=== PATIENT | male | born 1990 | race Caucasian/White ===

== ENCOUNTER → 2023-01-07 13:26 | Outpatient (BNVA) | payer OTHER, SELFPAY | PROVIDERS: Visit Provider Physician Assistant | DX: S01.111A Laceration without foreign body of right eyelid and periocular area, initial encounter (principal); W26.9XXA Contact with unspecified sharp object(s), initial encounter | CPT/HCPCS: 12011; 99203 ==

== ENCOUNTER → 2023-01-13 08:58 | Outpatient (BNVA) | payer OTHER, SELFPAY | PROVIDERS: Visit Provider Internal Medicine | DX: Z48.02 Encounter for removal of sutures (principal); S01.111A Laceration without foreign body of right eyelid and periocular area, initial encounter; W26.9XXA Contact with unspecified sharp object(s), initial encounter | CPT/HCPCS: 99212; 99213 ==

== ENCOUNTER 2024-10-24 08:37 | Emergency (ER) | payer OTHER, BC, SELFPAY ==
--- NOTE | ~2024-10-24 | XR_ITS ---
EXAMINATION: XR HAND 3 OR MORE VIEWS RIGHT HISTORY: crush injury, avulsion COMPARISON: There are no prior studies available for comparison. FINDINGS: Three views of the right hand are submitted. Osseous mineralization is normal. There is a comminuted nondisplaced fracture of the distal tuft of the index finger. There is an additional fracture involving the distal tuft of the middle finger. No additional fracture is seen. There is no dislocation. The joint spaces are preserved. There is marked soft tissue swelling of the middle finger. XR/XR hand RT min 3V IMPRESSION: Comminuted fracture of the distal tuft of the index finger. No fracture involving the distal tuft of the middle finger. Electronically signed by: Andrade Flynn MD 10/24/2024 09:43 AM EDT
[2024-10-24 08:43] VITALS: BP 120/71; PULSE 75; RESP 16; TEMP 36.1; O2SAT 97; BMI 24.3
[2024-10-24] MEDS: HYDROmorphone HCl 1 MG/ML SYRINGE IVPUSH (08:59)
[2024-10-24] MEDS: ondansetron HCL 4 MG/2 ML VIAL IVPUSH (08:59)
[2024-10-24] MEDS: Lidocaine HCl 1 % MPF 5 ML VIAL 10 ML INFILTRATI (09:00)
[2024-10-24] MEDS: Diphth,Pertus(ACell),Tet Adult 0.5 ML SYRINGE IM (09:00)
--- NOTE | 2024-10-24 09:05 | ED.WOUNDLAC ---
HPI - Wound/Laceration General Chief Complaint: Wound/Laceration Stated Complaint: R Hand Finger Injury ?Amputation Time Seen by Provider: 10/24/24 08:54 Source: patient and family () Mode of arrival: ambulatory Limitations: no limitations History of Present Illness ED Provider: JULIETH MAYORGA PA-C HPI narrative: 34 year old male with no significant pmhx presents to the ED today for evaluation of crush injury to right hand sustained at work [employer]. Reports crushing his right hand while attempting to attach a trailer to a truck hitch. Reports immediate pain/ bleeding. Not on AC. He is right hand dominant. Unsure of last tetanus. Reports pain to right 2/3/4 digits with open wound to 3rd digit. Admits to difficulty flexing right 3rd digit due to pain/swelling. no hx DM. Related Data Previous Rx's ?Medication ?Instructions ?Recorded tramadol 50 mg tablet 50 mg PO Q8H PRN pain (scale score 10/24/24 7-10) #9 tabs Allergies Allergy/AdvReac Type Severity Reaction Status Date / Time No Known Allergies Allergy Verified 10/24/24 08:48 Review of Systems Review of Systems: Yes all other systems are reviewed and are negative PMFSH Past Medical History Attestation statement: The following information was validated with the patient. Source: old records reviewed and nursing notes reviewed Social History Social History Advance Directives: No Advance Directives Information Provided: Yes Physical Exam Vital Signs: Vital Signs: Last Vital Signs Temp 97.8 F 10/24/24 12:29 Pulse 82 10/24/24 12:29 Resp 20 10/24/24 12:29 BP 108/72 10/24/24 12:29 Pulse Ox 97 10/24/24 12:29 O2 Del Method Room Air 10/24/24 12:29 BMI result Body Mass Index 24.3 vital signs stable General: anxious appearing, in no acute distress. Skin: Warm, dry, intact. No rashes or lesions. Head: Normocephalic, atraumatic. EENT: Hearing is intact b/l. Conjunctiva clear. PERRLA. EOM intact. Moist mucous membranes.? Cardiac: Chest wall symmetric. RRR Lungs: Normal respiratory effort without accessory muscle use. CTA bilaterally. Ext: +see photos below. semi circumferential laceration noted to distal right 3rd digit. actively bleeding. nail bed intact. decreased ROM to 3rd digit w/ flexion. sensation intact. decreased cap refill. Neuro: AOx3. Normal speech. Ambulating with steady gait. Psych: Appropriate mood and affect. Responds appropriately to questions. Course Course Course Narrative: CBC without leukocytosis or left shift. No anemia. H&H stable. Chemistry without acute electrolyte abnormality requiring intervention. No KRISTIN. Random glucose 147. X-ray of the right hand shows a comminuted nondisplaced fracture of the distal tuft of the index finger with an additional fracture involving the distal tuft of the middle finger. No other fractures noted. Marked soft tissue swelling of the 3rd digit consistent with exam findings. > I reached out to on-call ortho TSERING snider - recommending cleansing laceration with repair, abx, and outpatient ortho followup > tdap updated > treated with dilaudid, tylenol, and toradol witih good effect > during laceration repair, patient began to have vagal response. POC checked - 110. HOB lowered. He was given ice pack, 1L IVF, sandwich, and juice with improvement in symptoms. he did not syncopize. > laceration cleansed thoroughly with saline and iodine. No visible bone. I repaired laceration with a total of 12 sutures. approximated margins to the best of my ability. splinted both 2/3 digits. limited ROM to 3rd digit. concern for ligament/tendon injury. referral to dr. gutierrez (ortho- hand surgery) provided. advised prompt follow up. given open fracture, will start patient on Augmentin. advised Tylenol/ Motrin. tramadol sent for break through pain. referral to work connection provided. Patient has remained stable throughout ED visit today. Discussed worrisome signs and symptoms and when to return to the ED. All questions answered at this time. Patient is agreeable with disposition and stable for discharge. Medications Administered Discontinued Medications Generic Name Dose Route Start Last Admin Trade Name Freq PRN Reason Stop Dose Admin Diphtheria/Tetanus/Acell Pertussis 0.5 ml 10/24/24 08:48 10/24/24 09:00 Diphth,Pertus(Acell),Tet Adult 0.5 Ml Syringe IM 10/24/24 08:49 0.5 ml .ONCE ONE Administration Hydromorphone HCl 1 mg 10/24/24 08:48 10/24/24 08:59 Hydromorphone Hcl 1 Mg/Ml Syringe IVPUSH 10/24/24 08:49 1 mg ONCE ONE Administration Protocol Hydromorphone HCl 0.5 mg 10/24/24 10:39 10/24/24 11:00 Hydromorphone Hcl 0.5 Mg/0.5 Ml Syringe IVPUSH 10/24/24 10:40 Not Given ONCE ONE Protocol Sodium Chloride 1,000 mls @ 999 mls/hr 10/24/24 10:45 10/24/24 11:48 Ns IV 10/24/24 11:45 Infused .Q1H1M CHARY Infusion Acetaminophen 1,000 mg in 100 mls @ 400 mls/hr 10/24/24 10:46 10/24/24 10:49 Ofirmev IV 10/24/24 11:00 400 mls/hr ONCE ONE Administration Ketorolac Tromethamine 30 mg 10/24/24 10:45 10/24/24 10:47 Ketorolac Tromethamine 30 Mg/Ml Vial IVPUSH 10/24/24 10:46 30 mg ONCE ONE Administration Lidocaine HCl 10 ml 10/24/24 08:53 10/24/24 09:00 Lidocaine Hcl 1 % Mpf 5 Ml Vial INFILTRATI 10/24/24 08:54 10 ml ONCE ONE Administration Ondansetron HCl 4 mg 10/24/24 08:48 10/24/24 08:59 Ondansetron Hcl 4 Mg/2 Ml Vial IVPUSH 10/24/24 08:49 4 mg ONCE ONE Administration Medical Decision Making Medical Decision Making [facility] Narrative: 34 year old male with no significant pmhx presents to the ED today for evaluation of crush injury to right hand sustained at work [employer]. vital signs stable. afebrile. he is anxious appearing however in NAD. see physical exam section for details. Differential diagnosis includes laceration, open fracture, fracture, ligament/tendon injury, nail bed injury, nail avulsion Plan for screening labs, xrs, laceration repair, tdap booster, pain control and re-evaluation. Differential Diagnosis Differential Diagnoses: The differential diagnosis associated with the presentation includes as above. Admission/Observation not indicated. Consult Healthcare Provider Management of the patient was discussed with: Ferryboat Captain florence tam Lab Data MDM Lab Attestation statement: I reviewed the patient's lab results. as above. 10/24/24 09:18 10/24/24 09:18 Labs: Lab Results 10/24/24 10/24/24 Range/Units 09:18 10:43 WBC 6.1 (4.8-10.8) X10*3/uL RBC 4.53 L (4.60-5.80) X10*6/uL Hgb 14.1 (14.0-18.0) g/dl Hct 39.8 L (42.0-52.0) % MCV 87.9 (80.0-98.0) fL MCH 31.1 (27.0-33.0) pg MCHC 35.4 (31.0-36.0) g/dl RDW 11.9 (11.0-16.0) % Plt Count 212 (160-400) X10*3/uL MPV 9.0 L (9.4-12.4) fL Immature Gran % (Auto) 0.3 (0.0-0.4) % Neut % (Auto) 58.6 (45-73) % Lymph % (Auto) 31.9 (20-40) % [place] % (Auto) 6.1 (2-11) % Eos % (Auto) 2.3 (0-4) % Baso % (Auto) 0.8 (0-2) % Lymph # (Auto) 1.9 (1.2-4.9) X10*3/uL [place] # (Auto) 0.4 (0.1-1.2) X10*3/uL Eos # (Auto) 0.1 (0.0-0.4) X10*3/uL Baso # (Auto) 0.1 (0.0-0.2) X10*3/uL Abs Immat Gran (auto) 0.02 (0.00-0.03) X10*3/uL Absolute Neuts (auto) 3.5 (2.0-8.3) x10*3/uL Absolute Nucleated RBC 0.000 (0.0-0.012) X10*3/uL Nucleated RBC % (auto) 0.0 (0.0-0.2) /100WBC Sodium 138 (135-145) mmol/L Potassium 3.9 (3.3-5.1) mmol/L Chloride 106 (96-108) mmol/L Carbon Dioxide 21 L (22-29) mmol/L Anion Gap 15 (12-20) BUN 14 (9-16) mg/dL Creatinine 0.79 (0.5-1.4) mg/dL Estim Creat Clear Calc 125.0 Estimated GFR > 60 POC Glucose 110 (60-115) mg/dL Random Glucose 147 H (60-115) mg/dL Calcium 8.8 (8.4-10.2) mg/dL Independent Interpretation I performed an independent interpretation of an: Plain X-Ray Interpretation: xr right hand showing distal tuft fractures to both right 2nd and 3rd digits Radiology Impression Discussion of test interpretation with radiology: I have reviewed the radiologist's reading. Radiologist Impression: Procedure(s): XR hand RT min 3V Accession Number(s): [id number] cc: Marlene Fonseca DO; Emily Archibald JUNIOR NET DEVELOPER~ EXAMINATION: XR HAND 3 OR MORE VIEWS RIGHT HISTORY: crush injury, avulsion COMPARISON: There are no prior studies available for comparison. FINDINGS: Three views of the right hand are submitted. Osseous mineralization is normal. There is a comminuted nondisplaced fracture of the distal tuft of the index finger. There is an additional fracture involving the distal tuft of the middle finger. No additional fracture is seen. There is no dislocation. The joint spaces are preserved. There is marked soft tissue swelling of the middle finger. XR/XR hand RT min 3V IMPRESSION: Comminuted fracture of the distal tuft of the index finger. No fracture involving the distal tuft of the middle finger. Electronically signed by: Andrade Flynn MD 10/24/2024 09:43 AM EDT Independent Historian Clinical information obtained from an independent historian. History obtained from or confirmed by: Spouse () External Record Review External record reviewed: Inpatient record Prescription Management I considered prescription management with: Pain Medication and Antibiotic (augmentin) Social Determinants Patient?s care significantly limited by Social Determinants of Health including: Other Social Determinant of Health Procedures Laceration Laceration 1: Site: hand Side (If applicable): right Size (cm): 5 Description: linear Depth: simple, single layer Local Anesthetic: lidocaine 1% Amount of anesthesia used (mL): 10 Pre-repair: wound explored Skin layer closed with: nylon Size (cm): 3-0 Number of sutures: 12 Technique: simple, interrupted Nerve Block Nerve Block 1: Time out performed: Yes Local Anesthetic: lidocaine 1% Amount of anesthesia used (mL): 10 Side: right Nerve Blocks: digital Procedure Successful: Yes Patient Tolerated Procedure: well Complications: none Critical Care Time Critical Care Time Critical Care Time: No Discharge Plan Discharge Clinical Impression: Open comminuted fracture of distal phalanx of finger Patient Disposition: Home, Self-Care Instructions: Finger Fracture (ED) Additional Instructions: You were seen in the ED today following a crush injury to your right hand. You have a fracture to the tip of both your right index and middle fingers. You also have a large laceration to your middle finger that has been repaired with 12 sutures. Please wear your finger splint /. You may change the tape as needed. Please check the laceration daily. If you develop redness or swelling at the site of your laceration or note any discharge/ fluid coming from the laceration, please come back to the ER for a wound check. Please keep the area surrounding the laceration clean and dry. Do not get the area wet for 24 hours. After 24 hours, you may clean the area with a nonscented soap and pat to dry. Your tetanus vaccination was also updated and will be valid for 5-10 years. For pain: I recommend you take 600mg ibuprofen every 6 hours or tylenol 650mg every 6 hours as needed for pain. If needed, you can alternate these medications so that you take one medication every 3 hours. For example, at noon take ibuprofen, then at 3pm take tylenol, then at 6pm take ibuprofen. I am sending tramadol to your pharmacy for you to take as needed for break through pain. Rest and ice the finger as this can help with swelling and pain. To prevent infection: Augmentin is an antibiotic that has been sent to your pharmacy. Take this as prescribed for 7 days. Do not skin Please follow up with your primary care physician in 7-10 days for suture removal. You may also return to the ER or another urgent care facility for this service. Return to the Emergency Department if you experience discharge from your laceration, redness around your laceration, warmth around your laceration, fever, vomiting, numbness, tingling, or any other concerning symptoms. In the case of an emergency call 911. Make sure to wear the splint until you follow up with [facility] Orthopedic Team. You have been provided with their contact information. Call them to follow up, they will not call you. I have also provided you with the contact information for the work connection as this was a work related injury. Call them to follow up. Return with new or worsening symptoms. In the case of an emergency call 911. Prescriptions: New tramadol 50 mg tablet 50 mg PO Q8H PRN (Reason: pain (scale score 7-10)) Qty: 9 0RF Referrals: [facility] Orthopedic Surgeons [Provider Group] - 2 days (comminuted nondisplaced fracture of the distal tuft of the index finger. There is an additional fracture involving the distal tuft of the middle finger.) [facility] [Outside] - 3 days (finger fracture work injury) Emily Archibald APRN [Primary Care Provider] - Stand Alone Forms: Work/School Release Interventions: ED Discharge Assessment Last Done: 10/24/24 12:29 Discharge Date/Time: 10/24/24 12:29 Print Language: Bengali
[2024-10-24 09:24] LABS: MANUAL DIFF FLAG NO
[2024-10-24 09:27] LABS: Basophils Absolute Auto 0.1 X10*3/uL (0.0-0.2); Basophils Percent Auto 0.8 % (0-2); Eosinophils Absolute Auto 0.1 X10*3/uL (0.0-0.4); Eosinophils Percent Auto 2.3 % (0-4); Hematocrit 39.8 % (42.0-52.0); Hemoglobin 14.1 g/dl (14.0-18.0); Imm Gran Abs Auto 0.02 X10*3/uL (0.00-0.03); Imm Gran Pct Auto 0.3 % (0.0-0.4); Lymphocytes Absolute Auto 1.9 X10*3/uL (1.2-4.9); Lymphocytes Percent Auto 31.9 % (20-40); Mean Corpuscular HGB Conc 35.4 g/dl (31.0-36.0); Mean Corpuscular Hemoglobin 31.1 pg (27.0-33.0); Mean Corpuscular Volume 87.9 fL (80.0-98.0); Monocytes Absolute Auto 0.4 X10*3/uL (0.1-1.2); Monocytes Percent Auto 6.1 % (2-11); Neutrophils Absolute Auto 3.5 x10*3/uL (2.0-8.3); Neutrophils Percent Auto 58.6 % (45-73); Platelet Count 212 X10*3/uL (160-400); Red Blood Count 4.53 X10*6/uL (4.60-5.80); Red Cell Distribution Width 11.9 % (11.0-16.0); White Blood Count 6.1 X10*3/uL (4.8-10.8)
[2024-10-24 09:38] LABS: Anion Gap 15 (12-20); Blood Urea Nitrogen 14 mg/dL (9-16); Calcium 8.8 mg/dL (8.4-10.2); Carbon Dioxide 21 mmol/L (22-29); Chloride 106 mmol/L (96-108); Estimated Glomerular Filt Rate > 60; Glucose Random 147 mg/dL (60-115); Potassium 3.9 mmol/L (3.3-5.1); Sodium 138 mmol/L (135-145)
[2024-10-24 10:42] VITALS: BP 101/53; PULSE 66; RESP 16; O2SAT 99
[2024-10-24] MEDS: 0.9 % Sodium Chloride 1,000 ML 999 ML IV (10:47)
[2024-10-24] MEDS: Ketorolac Tromethamine 30 MG/ML VIAL IVPUSH (10:47)
[2024-10-24] MEDS: Acetaminophen 1,000 MG/100 ML PIGGYBACK 400 MG IV (10:49)
[2024-10-24 10:50] VITALS: BP 124/76; PULSE 78; RESP 22; O2SAT 100
[2024-10-24 10:54] LABS: Glucose, Whole Blood 110 mg/dL (60-115)
[2024-10-24 11:00] VITALS: RESP 20
[2024-10-24 12:29] VITALS: BP 108/72; PULSE 82; RESP 20; TEMP 36.6; O2SAT 97
== END 2024-10-24 12:29 | disposition home or self-care (01) ==
PROVIDERS: Emergency Provider Emergency Medicine; PCP Nurse Practitioner
DX: S62.602A Fracture of unspecified phalanx of right middle finger, initial encounter for closed fracture (principal); S61.212A Laceration without foreign body of right middle finger without damage to nail, initial encounter; M79.641 Pain in right hand; R79.89 Other specified abnormal findings of blood chemistry; W26.9XXA Contact with unspecified sharp object(s), initial encounter; Y93.9 Activity, unspecified; Y92.9 Unspecified place or not applicable; Y99.8 Other external cause status; Z23 Encounter for immunization
CPT/HCPCS: 12002; 29130; 36415; 73130; 80048; 82947; 85025; 90471; 90715; 96374; 96375; 99284; J0131; J1171; J1885; J2003; J2405

== ENCOUNTER → 2024-10-24 08:48 | Outpatient (BNV) | payer OTHER, BC, SELFPAY | PROVIDERS: Emergency Provider Emergency Medicine; PCP Nurse Practitioner; Visit Provider Radiology Diagnostic Radiology | DX: S62.630A Displaced fracture of distal phalanx of right index finger, initial encounter for closed fracture (principal) | CPT/HCPCS: 73130 ==

== ENCOUNTER 2024-10-25 10:22 | Outpatient (AMB) | payer OTHER, BC, SELFPAY ==
--- NOTE | 2024-10-25 10:26 | MHC.OFFVIS ---
Vital Signs 10/25/24 10:34 Height 5 ft 8 in Weight 160 lb BMI 24.3 Intake Visit Reasons: F/C RT IF&MF crush w/c injury 10/24/24 Intake Note: Fuentes 34 yr old right hand dominant male presents today with his Debby, for a evaluation of crush injury to right hand index and middle finger, sustained at work DOI 10/24/24. Reports crushing his right hand while attempting to attach a trailer to a truck hitch. Seen in ED same day where xrays were taken, a fracture was confirmed, he then received 12 suture, splinted and referred to orthopedic. Currently state he has numbness, tingling and throbbing. States he was told ABX will be sent to his pharmacy but nothing was ever received. Hx of rt hand index finger tendon laceration with repair at age 16. Allergies No Known Allergies Allergy (Verified 10/25/24 10:33) HPI HPI F/C RT IF&MF crush w/c injury 10/24/24: Details: Rudy is a 34 year old right hand dominant man, here with his , for his right index & middle finger crush injury, DOI: 10/24/24. This occurred at work while attempting to attach a trailer to a truck. This is a work related injury. He was seen in the ED the same day where his middle finger was cleaned & sutured. 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 He complains today of throbbing pain, numbness, and tingling, primarily to his middle finger. He says he feels like a Novocaine feeling to his middle finger. He says he did not receive an Abx prescription from his pharmacy, despite the ED ordering it. He says he has a Hx of a right index finger tendon laceration repair done at 16. He says he does not have full ROM of his index finger following this surgery. 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 Review of Systems Const All systems reviewed & are unremarkable except as noted in HPI and below Physical Exam Vital Signs: BMI result Body Mass Index 24.3 Const General: no acute distress and alert Orientation/consciousness: patient oriented x3 Neuro General: patient oriented x3 Extrem Other: Evaluation of Right Upper Extremity: The patient is alert, oriented, and in no acute distress Neuro: Median, Ulnar, Radial nerves motor and sensory intact and sensation is normal to the tips of all digits, except for numbness to the middle finger radial digital nerve distribution, normal sensation to the ulnar nerve distribution. Intact sensation to the ulnar digital nerve distribution of the middle finger Vascular: Cap refill brisk ROM: He can bring his MCP joints into full flexion extension. Good FDP and FDS tendon function to the index ring and small fingers. Good FDS tendon function to the middle finger, difficult to assess FDP tendon function at this time, though he appears to demonstrate a small amount of D IP flexion Complex laceration dorsal aspect, extending over radial to the volar side, of the middle finger Oblique laceration extending from the dorsal DIP joint to the volar radial aspect and up to the PIP joint Radiographs: 3 views of the right hand were taken and viewed by me today in clinic. They show an index finger oblique distal phalanx fracture, minimally displaced, and a middle finger distal phalanx tuft fracture, involving the radial side of the tuft, minimally displaced Psych Appearance: grossly normal Affect: normal affect Attitude: cooperative Office Procedures AMB Fracture Care Details: Fracture care, distal phalanx fracture 11784 x2 Fracture Billing Code: Fracture Billing Code Assessment & Plan Assessment & Plan (1) Open fracture of distal phalanx of right middle finger: Code(s): S62.632B - Displaced fracture of distal phalanx of right middle finger, initial encounter for open fracture Category: Medical (2) Fracture of distal phalanx of right index finger: Code(s): S62.630A - Displaced fracture of distal phalanx of right index finger, initial encounter for closed fracture Category: Medical (3) Numbness of right hand: Code(s): R20.0 - Anesthesia of skin Category: Medical (4) Crushing injury of right hand and finger: Code(s): S67.21XA - Crushing injury of right hand, initial encounter Category: Medical Plan Assessment & Plan: 1. Right middle finger distal phalanx radial tuft fracture, open From a crush injury at work, DOI: 10/24/24 Seen in ED & sutured: 10/24/24 2. Right middle finger complex laceration and radial digital nerve numbness, S/P crush injury 3. Right index finger distal phalanx fracture, oblique, closed From a crush injury at work, DOI: 10/24/24 These are work related injuries I educated him and his about this condition I discussed treatment options We will manage this non-operatively He was fitted for an index & middle finger spica splint, allowing for DIP joint ROM, for the next 2 weeks. I explained the signs and symptoms of infection, if the patient develops any new or worsening erythema, drainage, pain, or warmth they should contact the clinic or attend the ED. 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 I explained he will likely be out of work for 4-8 weeks total, as he says there is no light duty for him He will follow up on 10/28/24 with TSERING [place] for a wound check Anticipate suture removal at between 2 and 3 weeks Scribed for Joann Grajeda MD by Bhavesh Rice, biomedical engineering internship, on 10/25/24 at 10:50 AM, EST. Medications: New amoxicillin-pot clavulanate 875-125 mg 1 tab PO Q12H 20 tabs 0RF Discontinued tramadol Discontinued Reason: Stopped on Transfer 50 mg PO Q8H PRN 9 tabs 0RF pain (scale score 7-10) Coding Level of Care Code New Pt Level 4 (72281) Diagnoses Open fracture of distal phalanx of right middle finger S62.632B Fracture of distal phalanx of right index finger S62.630A Numbness of right hand R20.0 Crushing injury of right hand and finger S67.21XA CPT Codes Fracture Care - Fracture Billing Code: Fracture Billing Code ([id number])
[2024-10-25 10:34] VITALS: BMI 24.3
--- OUTSIDE RECORDS SUMMARY | 2024-10-25 12:16 | XMS_ITS | Clinical Summary ---
Author Organization [facility] Address [address] [place], [place] [id number] Care Team Providers Care Mattress Renovator Name Role Phone Emily Archibald CARRIE Primary Care Provider Allergies No known active allergies Medications No known medications Active Problems Problem Noted Date Diagnosed Date Major depressive disorder, recurrent episode, mo derate 10/22/2022 Last Assessment & Plan: Psychological condition is Stable, Controlled. Continue current treatment regimen. Regular aerobic exercise. will continue with name brand as pt feels this is much better for him and having no issues Psychological condition will be reassessed 6 months for physical with lab review and med managment . Anxiety 10/22/2022 Thyroid nodule 01/29/2012 Overview: Overview: Thyroid nodule; Left Immunizations Name Administration Dates Next Due Tdap 10/11/2018 Family History Medical History Relation Name Comments No Sig Med Hx Brother No Sig Med Hx Daughter Hypertension Father Bipolar disorder Maternal Aunt Depression Maternal Aunt Cancer Maternal Grandfather Emphysema Maternal Grandfather Hypertension Maternal Grandfather Stroke Maternal Grandfather No Sig Med Hx Maternal Uncle Anxiety disorder Mother Depression Mother Hypertension Mother No Sig Med Hx Paternal Grandmother Relation Name Status Comments Brother Alive Daughter Alive Father Alive Maternal Aunt Alive Maternal Grandfather Alive Maternal Grandmother Alive Maternal Uncle Alive Mother Alive Paternal Aunt Alive Paternal Grandfather Paternal Grandmother Alive Paternal Uncle Alive Social History Tobacco Use Types Packs/Day Years Used Date Smoking Tobacco: Never Smokeless Tobacco: Never Tobacco Cessation:Counseling Given: Not Answered Alcohol Use Standard Drinks/Week Comments No 0 (1 standard drink = 0.6 oz pur e alcohol) Social Connection and Isolat ion Panel [NHANES] Answer Date Recorded In a typical week, how many times do you talk on the phone with family, friends, or neighbors? More than three times a week 03/07/2022 How often do you get togethe r with friends or relatives? More than three times a week 03/07/2022 How often do you attend chur ch or latter-day services? More than 4 times per year 03/07/2022 Do you belong to any clubs o r organizations such as judaism groups, unions, fraternal or athletic groups, or school groups? Yes 03/07/2022 How often do you attend meet ings of the clubs or organizations you belong to? More than 4 times per year 03/07/2022 Are you , , di vorced, , never , or living with a partner? 03/07/2022 Overall Financial Resource Strain (CARDIA) Answe r Date Recorded How hard is it for you to pa y for the very basics like food, housing, medical care, and heating? Not hard at all 03/07/2022 Hunger Vital Sign Answer Date Recorded Within the past 12 months, y ou worried that your food would run out before you got the money to buy more. Never true 03/07/20 22 Within the past 12 months, t he food you bought just didn't last and you didn't have money to get more. Never true 03/07/2022 PRAPARE - Transportation Answer Date Re corded In the past 12 months, has l ack of transportation kept you from medical appointments or from getting medications? No 02/24 In the past 12 months, has l ack of transportation kept you from meetings, work, or from getting things needed for daily living? No 03/07/2022 Housing Stability Vital Sign Answer Lyle e Recorded In the last 12 months, was t here a time when you were not able to pay the mortgage or rent on time? No 03/07/2022 In the last 12 months, how many places have you lived? 1 03/07/2022 In the last 12 months, was t here a time when you did not have a steady place to sleep or slept in a penitentiary (including now)? No 03/07/2022 Sex and Gender Information Value Date Recorded Sex Assigned at Not on file Gender Identity Not on file Sexual Orientation Not on file Job Start Date Occupation Industry Not on file Not on file Not on file Last Filed Vital Signs Vital Sign Reading Time Taken Comments Blood Pressure 110/64 05/11/2024 3:41 PM EDT Pulse 60 05/11/2024 3:41 PM EDT Temperature 35.9 ??C (96.7 ??F) 05/11/2024 3:41 PM ED T Respiratory Rate 16 08/30/2021 12:56 PM EST Oxygen Saturation 97% 05/11/2024 3:41 PM EDT Inhaled Oxygen Concentration - - Weight 76.3 kg (168 lb 4.8 oz) 05/11/2024 3:41 P M EDT Height 172.7 cm (5' 8 ) 12/18/2023 11:37 AM EDT Body Mass Index 25.59 12/18/2023 11:37 AM EDT Plan of Treatment Health Maintenance Due Date Last Done Comments BMI Counseling 03/20/2024 03/20/2023, 02/24, 12/01/2020 Depression Screening 03/20/2024 03/20/2023, 03/07/2022, 03/07/2022, Additional history exists Preventative Health Evaluation 03/20/2024 03/20/2023, 03/07/2022, 12/01/2020 Influenza Vaccine (#1) 2024 DTap / Tdap / Td Discontinued 10/11/2018 COVID-19 Vaccine Discontinued Hepatitis B Vaccines Discontinued Hepatitis C Screening Discontinued Pneumococcal Vaccine Aged Out No long er eligible based on patient's age to complete this topic RSV Ped < 20 months Aged Out No longe r eligible based on patient's age to complete this topic Care Teams Mattress Renovator Relationship Specialty Start Date End Date Emily Archibald APRN PCP - General Pediatrics 10/05/20
--- OUTSIDE RECORDS SUMMARY | 2024-10-25 12:16 | XMS_ITS | Clinical Summary ---
Author Organization [facility] [place] [address] Phone Care Team Providers Care Manufacturers Service Representative Name Role Phone Emily Archibald NP Primary Care Provider [phone] Medical History Medical History Date Comments Anxiety DX:Anxiety Thyroid nodule 01/29/2012 DX:Thyroid nodul e Covid-19 DX:COVID-19 Major depressive disorder, r ecurrent episode, moderate (CMS/HCC) 10/22/2022 DX:Major depressive disord er, recurrent episode, moderate (HCC) Right tennis elbow DX:Right tenn is elbow Family History Medical History Relation Name Comments No Known Problems Brother No Known Problems Daughter Hypertension Father Cancer Maternal Grandfather Emphysema Maternal Grandfather Hypertension Maternal Grandfather Stroke Maternal Grandfather Anxiety disorder Mother Depression Mother Hypertension Mother No Known Problems Mother's Brother Bipolar disorder Mother's Sister Depression Mother's Sister No Known Problems Paternal Grandmother Relation Name Status Comments Brother Alive Daughter Alive Father Alive Father's Brother Alive Father's Sister Alive Maternal Grandfather Alive Maternal Grandmother Alive Mother Alive Mother's Brother Alive Mother's Sister Alive Paternal Grandfather Paternal Grandmother Alive Social History Tobacco Use Types Packs/Day Years Used Date Smoking Tobacco: Never Smokeless Tobacco: Never Alcohol Use Standard Drinks/Week Comments No 0 (1 standard drink = 0.6 oz pur e alcohol) Sex and Gender Information Value Date Recorded Sex Assigned at Not on file Legal Sex Male 5:16 AM EST Gender Identity Not on file Sexual Orientation Not on file Obstetrics History Last Filed Vital Signs Vital Sign Reading [...] Health Maintenance Due Date Last Done Comments Hepatitis B Vaccines (1 of 3 - 19+ 3-dose series) 01/10/2007 Depression Screening 06/29/2022 HIV Screening 06/29/2022 Hepatitis C Screening 06/29/2022 Social Influencers of Health Screening 06/29/2022 COVID-19 Vaccine (2023-2 5 season) 2024 Influenza Vaccine (Season Ended) 2025 Cholesterol Screening (Lipid Panel) 03/06/2028 03/06/2023, 02/25/2022 DTaP,Tdap,and Td Vaccines (2 - Td or Tdap) 10/11/2028 10/11/2018 HIB Vaccines Aged Out No longer eligi ble based on patient's age to complete this topic HPV Vaccines Aged Out No longer eligi ble based on patient's age to complete this topic Hepatitis A Vaccines Aged Out No long er eligible based on patient's age to complete this topic IPV Vaccines Aged Out No longer eligi ble based on patient's age to complete this topic MMR Vaccines Aged Out No longer eligi ble based on patient's age to complete this topic Meningococcal ACWY Vaccine Aged Out N o longer eligible based on patient's age to complete this topic Meningococcal B Vacine Aged Out No lo nger eligible based on patient's age to complete this topic Pneumococcal Vaccine: Pediatrics (0 to 5 Years) and At-Risk Patients (6 to 64 Years) Aged Out No longer eligible b ased on patient's age to complete this topic RSV Immunization Patients Under 20 months Aged Out No longer eligible b ased on patient's age to complete this topic Varicella Vaccines Aged Out No longer eligible based on patient's age to complete this topic Care Teams Manufacturers Service Representative Relationship Specialty Start Date End Date Emily Archibald NP [address] [place] [address] PCP - General Pediatrics 10/05/20
--- OUTSIDE RECORDS SUMMARY | 2024-10-25 12:16 | XMS_ITS | Clinical Summary ---
Author Organization [facility] Address [address] [place] [address] Care Team Providers Care Lunchroom Supervisor Name Role Phone Unavailable Primary Care Provider Unavailabl e Social History Tobacco Use Types Packs/Day Years Used Date Smoking Tobacco: Never Assessed Sex and Gender Information Value Date Recorded Sex Assigned at Not on file Legal Sex Male 11:16 AM EDT Gender Identity Not on file Sexual Orientation Not on file Plan of Treatment Health Maintenance Due Date Last Done Comments Hepatitis C Screening 1988 DTaP/Tdap/Td (1 - Tdap) 01/10/2006 Hep B (1 of 3 - 19+ 3-dose series) 01/10/2007 COVID-19 Vaccine (2023-2 5 season) 2024 Influenza (#1) 2024 Zoster (Shingrix) (1 of 2) 01/10/2038 HPV Vaccine Aged Out No longer eligi ble based on patient's age to complete this topic Hep A Aged Out No longer eligi ble based on patient's age to complete this topic Hib Aged Out No longer eligi ble based on patient's age to complete this topic Meningococcal ACWY Aged Out No longer eligible based on patient's age to complete this topic Pneumococcal Aged Out No longer eligi ble based on patient's age to complete this topic
--- OUTSIDE RECORDS SUMMARY | 2024-10-25 12:16 | XMS_ITS | Data Portability ---
Author Organization [place] [facility], auto[facility] - [facility] Address [address] [place] [address] Assessment No assessment recorded. Plan of Treatment Reminders Order Date Submit Date Provider Last Modified By Organization Details Last Modified Time Details Appointments OFFICE VISIT 15 2024 09:30A M Emily Archibald, DNP, FIRST SAMPLER Not available Not available Not available Lab urinalysi s, dipstick 2024[facility] [id number] , [address], [place], [address], 09/19/2024 12:55:04 Referral None recorded. Procedures None recorded. Surgeries None recorded. Imaging None recorded. Medication Orders escitalop avila 20 mg tablet 2024[id number], [address] [facility], [place], [address], 09/19/2024 12:55:04 Patient TargetsNo targets recorded. Patient Instructions Encounter Date Encounter Id Patient Instructions Last Modified By Organization Details Last Modified Time 09/16/2024 [id number] Patient presente d to office today for their well check Visit. Education was provided on healthy nutrition, including a diet rich in fruits and vegetables, minimizing simple carbohydrates, salt, and saturated fats. Encouraged regular cardiovascular exercise. Emphasized preventive health measures and educated pt/caregiver lifestyle interventions to help reduce health risks and promote healthy living. [email or web address] Not available 09/16/2024 09:56:15 - Informed pt th at his ldl cholesterol is slightly elevated but is not high enough to be a concern - Informed pt that one of his liver labs came back abnormal but is due to dehydration at the time of the labs being drawn - All medications will remain the same - Refill on lexapro sent to the pharmacy - No other questions or concerns at this time [email or web address] Not available 09/16/2024 09:59:49 Reason for Referral None Reported. Results Created Date Observation Date Name Description Value Unit Range Abnormal Flag Note LastModifiedBy Organization Detail LastModifiedTime 09/16/19 25 09/16/2024 urina lysis , dipst ick Leukocytes Negati ve Not Available [id number] cp [address], [place], [address], 09/16/2024 09:56:35 09/16/19 25 09/16/2024 urina lysis , dipst ick Nitrite negati ve Not Available [id number] cp [address], [place], [address], 09/16/2024 09:56:35 09/16/19 25 09/16/2024 urina lysis , dipst ick Urobilinogen .2 Not Available [id number]_pcp [address], [place], [address], 09/16/2024 09:56:35 09/16/19 25 09/16/2024 urina lysis , dipst ick Protein Negati ve Not Available [id number] cp [address], [place], [address], 09/16/2024 09:56:35 09/16/19 25 09/16/2024 urina lysis , dipst ick pH 7.5 Not Available [id number]_ pcp [address], [place], [address], 09/16/2024 09:56:35 09/16/19 25 09/16/2024 urina lysis , dipst ick Blood Negati ve Not Available [id number] cp [address], [place], [address], 09/16/2024 09:56:35 09/16/19 25 09/16/2024 urina lysis , dipst ick Specific Maxbass 1.005 Not Available [id number] _[id number] [address], [place], [address], 09/16/2024 09:56:35 09/16/19 25 09/16/2024 urina lysis , dipst ick Ketone Negati ve Not Available [id number] cp [address], [place], [address], 09/16/2024 09:56:35 09/16/19 25 09/16/2024 urina lysis , dipst ick Bilirubin Negati ve Not Available [id number] cp [address], [place], [address], 09/16/2024 09:56:35 09/16/19 25 09/16/2024 urina lysis , dipst ick Glucose Negati ve Not Available [id number] cp [address], [place], [address], 09/16/2024 09:56:35 09/16/19 25 09/16/2024 urina lysis , dipst ick Appearance Clear Not Available [id number] bp_pcp [address], [place], [address], 09/16/2024 09:56:35 09/16/19 25 09/16/2024 urina lysis , dipst ick Color Yellow Not Available [id number]_ pcp [address], [place], [address], 09/16/2024 09:56:35 Result Notes None recorded. Problems Name Problem SNOMED Code Status Onset Date Resolution Date Notes Provider Name and Address Organization Details Recorded Time Thyroid nodule 491795861 Active 2011 Thyroid nodule; WRG5Bgmu ription: Thyroid nodule; UMD79Jao cription : Thyroid nodule; NPI: [id number]; Not Available [facility] 5 09:46:16 Anxiety 83106820 Active 2022 Anxiety; SZP2Tsop ription: Anxiety; ZMD01Grj cription : Anxiety; NPI: [id number]; Not Available [facility] 5 09:46:16 Moderate recurrent major depression 06128233 Active 2024 Emily Archibald DNP, FIRST SAMPLER [address] [place], [address] , [facility] 5 09:46:53 Generalized anxiety disorder 92790670 Active 2024 Emily Archibald DNP, FIRST SAMPLER [address], [place], [address] , [facility] 5 09:46:59 Problem Notes None recorded. Medical Equipment None Reported. Allergies No known drug allergies Medications Name Sig Start Date Stop Date Status Note LastModified by Organization Details LastModified Time escitalopram 10 mg tablet TAKE 1 TABLET BY MOUTH EVERY DAY 09/16 completed Not Available Not Available Not Available escitalopram 20 mg tablet TAKE 1 TABLET BY MOUTH EVERY DAY 2024 active Not Available Not Available Not Avai lable Viibryd 10 mg tablet TAKE 1 TABLET BY MOUTH EVERY DAY 09/16 completed Not Available Not Available Not Available Viibryd 20 mg tablet TAKE 2 TABLETS (40 MG TOTAL) BY MOUTH DAILY. 09/16 completed Not Available Not Available Not Available Vitals Date Recorded Body height Body mass index (BMI) Body weight Heart rate Oxygen saturation Oxygen saturation in Arterial blood by Pulse oximetry Body temperature Systolic blood pressure Diastolic blood pressure Provider Name and Address Organization Details Last Updated DateTime 5 172.699 68 cm 25.1 kg/m2 34546.3 8 g 72 /min 96 % 96 % 96.3 [degF] 110 mm[Hg] 68 mm[Hg] [facility] 5 09:30:25 Social History Question Answer Notes LastModified by Organizat ion Details LastModified Time Tobacco Smoking Status Never Smoker [facility] 09/16/2024 09:32:18 What Is Your Level Of Alcohol Consumption? None [email or web address] Information not available 09/16/2024 Do You Use Protection Against STDs? No [email or web address] Information not available 09/16/2024 What Is Your Relationship Status? [email or web address] Information not available 09/16/2024 Are You Sexually Active? Yes [email or web address] Information not available 09/16/2024 Do You Use Any Illicit Or Recreational Drugs? No [email or web address] Information not available 09/16/2024 Do You Or Have You Ever Used Any Other Forms Of Tobacco Or Nicotine? No [email or web address] Information not available 09/16/2024 Sex: Unknown Functional Status None recorded. Mental Status None recorded. Family History Relationship Description Onset Age of this Age Resolved Age Notes LastModified by Organization Details LastModified Time Father No current problems or disability [email or web address] Not available 09/16 09:31:53 Mother No current problems or disability [email or web address] Not available 09/16 09:31:53 Brother Problem No Sig Med Hx; Member s: Brothe r Not available 10/04/2024 04:00:13 Mother Anxiety disorder Anxiet y disord er; Member s: Mother Not available 10/04/2024 04:00:13 Daughter Problem No Sig Med Hx; Member s: Daught er Not available 10/04/2024 04:00:13 Maternal Uncle Problem No Sig Med Hx; Member s: Matern al Uncle Not available 10/04/2024 04:00:13 Maternal Grandfather Emphysema Emphys talia; Member s: Matern al Grandf ather Not available 10/04/2024 04:00:14 Paternal Grandmother Problem No Sig Med Hx; Member s: Patern al Grandm other Not available 10/04/2024 04:00:14 Maternal Aunt Bipolar disorder Bipola r disord er; Member s: Matern al Aunt Not available 10/04/2024 04:00:15 Notes:Father: Hypertension M aternal Aunt: Depression Maternal Grandfather: Cancer, Hypertension, Stroke Mother: Depression, Hypertension Medical History No medical history recorded. Immunizations Vaccine Type Date Status Note Provider Nam e and Address Organization Details Recorded Time Tdap 10/11/2018 completed Not Available [facility] 09/08/2024 10:02:07 Past Encounters Encounter ID Performer Location Encounter Start Date Encounter Closed Date Diagnosis/Indication Diagnosis SNOMED-CT Code Diagnosis ICD10 Code Diagnosis Note [id number] Emily Archibald DNP, FIRST SAMPLER [id number] [address] [place] [address] 09/16/2024 09:17:40 09/16/2024 10:01:35 Active or passive immunization 306590551 Z23 Adult heal th examination 798632131 Z00.00 Moderate r ecurrent major depression 24377311 F33.1 Health Concerns Section Related Observation LastModified by Organization Detai ls LastModified Time None Recorded Concern Status LastModified by Organization Details LastModified Time None Recorded Advance Directives Directive None Recorded Payers Encounter Date Sequence Insurance Name Policy Number Policy Weston Covered Member ID Weston Member ID Guarantor Name 09/16/2024 1 [place] [facility] [id number] Rudy Ortiz [id number] Rudy Ortiz Notes Date Note Type Note Provider Name and Address Organization Details Recorded Time 09/16/2024 text/html Annual WellnessReported bypatient.Diet and Nutrition:follows recommended diet Fracture Risk:no history of fractures; no recent explained fracture; no sudden unexplained fractures; no previous musculoskeletal injuries Physical Activity:exercises on a regular basis; good physical condition Additional Lifestyle Factors:no tobacco use; no alcohol intake; stopped drinking alcohol; no intimate partner violence; no high risk sexual behavior Depression Risk:never feels sad, empty, or tearful; no loss of interest in activities; no significant changes in weight; no sleep disturbances or insomnia; no agitation; no loss of energy; no feelings of worthlessness or guilt; no thoughts of suicide; no history of depression; no history of mood disorders Hearing:no loss of hearing Vision:no vision problems Pt is here for his annual physical exam. Pt is currently on lexapro 20mg/day and is utd on refills at this time. Pt states the medication is working well. Pt sees [facility] therapy weekly. No other specialists seen routinely. No other questions or concerns at this time. Emily Archibald DNP, FIRST SAMPLER [address], [place], [address], [place] [facility] 10/03/2024 09:54:04
--- OUTSIDE RECORDS SUMMARY | 2024-10-25 12:16 | XMS_ITS | Encounter Summary ---
Author Organization [facility] Address [address] [place] [address] Care Team Providers Care Inventory And Pricing Associate Name Role Phone Emily Archibald MATE FOURTH Primary Care Provider [phone] Encounter Details Date Type Department Care Team (Late st Contact Info) Description 05/11/2024 3:31 PM EDT Hospital Encounter TH HISTORIC ENCOUNTERS EASTERN CONVERSION ONLY Emily Archibald, MATE FOURTH [address] [place] [address] Social History Tobacco Use Types Packs/Day Years [...] the viibryd at this time. Pt sees [facility] therapy weekly and he spoke with a scalp treatment specialist there in that office, and she [...] out of 100 with a therapist at [facility] and he was told he could do the path of stimulants or continue down the path that he is on now and add something like a wellbutrin. Pt is unsure if he wants [facility] to take over his medications at this time or if he wants to continue with us handling his medications. Pt does have a follow up in May with [facility] to see if his medicationsover the next 6 weeks are keeping him in a good place or if he feels he needs to take different steps with [facility] and have them take over his medications. No other questions or concerns at this time. PHQ9 done. * Emily Archibald NP - 05/11/2024 3:30 PM EDT Med Management CHIEF COMPLAINT: Chief Complaint Patient presents with ??? Medication Management HISTORY OF PRESENT ILLNESS: Rudy Otriz is a 34 y.o. male who has [...] the viibryd at this time. Pt sees [facility] therapy weekly and he spoke with a scalp treatment specialist there in that office, and she [...] out of 100 with a therapist at [facility] and he was told he could do the path of stimulants or continue down the path that he is on now and add something like a wellbutrin. Pt is unsure if he wants [facility] to take over his medications at this time or if he wants to continue with us handling his medications. Pt [facility] if his medications over the next 6 weeks are keeping him in a good place or if he feels he needs to take different steps with [facility] and have them take over his [...] in visit on 07/22/23 POCT Influenza A/B (23464 X2 w/ Mod 59) Result Value Ref [...] on filedocumented in this encounter Care Teams Inventory And Pricing Associate Relationship Specialty Start Date End Date Emily Archibald NP [address] [place] [address] PCP - General Pediatrics 10/05/20 documented as of this encounter
--- OUTSIDE RECORDS SUMMARY | 2024-10-25 12:16 | XMS_ITS | Clinical Summary ---
Author Organization [facility] Address [address] [address] Phone Care Team Providers Care Video Rental Clerk Name Role Phone Shaun Edwards MD Primary Care Provider [phone] Allergies No known active allergies Medications Medication Sig Dispensed Refills Start Date End Date Status escitalopram oxalate (LEXAPRO) 20 MG tablet Take 20 mg by mouth daily. Active Active Problems Problem Noted Date Diagnosed Date Thyroid nodule 01/29/2012 Overview (09/16/2014): Thyroid nodule; Left Social History Tobacco Use Types Packs/Day Years Used Date Smoking Tobacco: Never Smokeless Tobacco: Never Alcohol Use Standard Drinks/Week Comments Yes 0 (1 standard drink = 0.6 oz pur e alcohol) rarely Education Answer Date Recorded Are you interested in more education? Not on kenya e 12/06/2022 Are you concerned about learning? Not on file 12/06/2022 No 12/06/2022 No 12/06/2022 Digital Access Answer Date Recorded No 12/22/2022 No 12/22/2022 Reliable internet access at home? Not on file 12/22/2022 Device with a working camera? Not on file Intimate Partner Violence Answer Date R ecorded Are you denied basic needs s uch as food, clothing, or medical care? No 05/30/2024 In the past 12 months have y ou been in a relationship with a person who hurts, threatens, or tries to control you? No 05/30/2024 Are you denied basic needs s uch as food, clothing, or medical care? No 05/30/2024 In the past 12 months have y ou been in a relationship with a person who hurts, threatens, or tries to control you? No 05/30/2024 Sex and Gender Information Value Date Recorded Sex Assigned at Male 05/30/2024 10:38 AM EST Gender Identity Male 05/30/2024 10:38 AM EST Sexual Orientation Straight 05/30/2024 10 :38 AM EST Last Filed Vital Signs Vital Sign Reading Time Taken Comments Blood Pressure 127/77 05/30/2024 10:33 AM EST Pulse 56 05/30/2024 10:33 AM EST Temperature 36.7 ??C (98 ??F) 05/30/2024 10:33 AM EST Respiratory Rate 18 05/30/2024 10:33 AM EST Oxygen Saturation 98% 05/30/2024 10:33 AM EST Inhaled Oxygen Concentration - - Weight - - Height - - Body Mass Index - - Plan of Treatment Health Maintenance Due Date Last Done Comments LIPID PANEL 1988 DEPRESSION SCREENING 2000 HEPATITIS B SCREENING 01/10/2006 HEPATITIS C SCREENING 01/10/2006 HIV ONE-TIME SCREENING (18-6 5 YEARS) 01/10/2006 HEPATITIS B VACCINES (1 of 3 - 19+ 3-dose series) 01/10/2007 INFLUENZA VACCINE (#1) 2024 COVID-19 VACCINE ( - 2023-2 5 season) 2024 Adult Td,Tdap Booster 10/11/2028 10/11/2018 SMOKING STATUS SCREENING (On ce After 26 Yrs) Completed 04/20/2019 HEPATITIS A VACCINES Aged Out No long er eligible based on patient's age to complete this topic HIB VACCINES Aged Out No longer eligi ble based on patient's age to complete this topic MENINGOCOCCAL VACCINES (ACWY) Aged Out No longer eligible based on patient's age to complete this topic PNEUMOCOCCAL VACCINES (0-49 years) Aged Out No longer eligible based on patient's age to complete this topic Medical Devices Not on file Care Teams Video Rental Clerk Relationship Specialty Start Date End Date Shaun Edwards MD PCP - General 01/24/14 Additional Source Comments The information contained in this document represents components of the legal health record. It is not the complete legal health record.[facility]
--- OUTSIDE RECORDS SUMMARY | 2024-10-25 12:17 | XMS_ITS | Encounter Summary ---
Author Organization [facility] Address [address] [facility] [address] [place] [address] Phone Care Team Providers Care Financial Investigator Name Role Phone Shaun Edwards MD Primary Care Provider [phone] Encounter Details Date Type Department Care Team ([facility] st Contact Info) Description 05/30/2024 Ophth Exam [facility] Emergency Department [address] [place] [address] Justin Gibbs MD [address] [place] [address] [email or web address] Social History Tobacco Use Types Packs/Day Years [...] Orientation Straight 05/30/2024 10 :38 AM EST documented as of this encounter Plan of Treatment Not on file documented as of this encounter Visit Diagnoses Not on filedocumented in this encounter Care Teams Financial Investigator Relationship Specialty Start Date End Date Shaun Edwards MD PCP - General 01/24/14 documented as of this encounter Additional Source Comments The information contained in this document represents components of the legal health record. It is not the complete legal health record.[facility]
== END 2024-10-25 11:21 | disposition home or self-care (01) ==
PROVIDERS: PCP Nurse Practitioner; Visit Provider Orthopaedic Surgery
DX: S62.632B Displaced fracture of distal phalanx of right middle finger, initial encounter for open fracture (principal); S62.630A Displaced fracture of distal phalanx of right index finger, initial encounter for closed fracture; R20.0 Anesthesia of skin; S67.21XA Crushing injury of right hand, initial encounter
CPT/HCPCS: 26750; 99204

== ENCOUNTER → 2024-10-25 10:22 | Outpatient (BNVA) | payer OTHER, BC, SELFPAY | PROVIDERS: PCP Nurse Practitioner; Visit Provider Orthopaedic Surgery | DX: S62.632B Displaced fracture of distal phalanx of right middle finger, initial encounter for open fracture (principal); S62.630A Displaced fracture of distal phalanx of right index finger, initial encounter for closed fracture; S67.21XA Crushing injury of right hand, initial encounter; R20.0 Anesthesia of skin | CPT/HCPCS: 99202 ==

== ENCOUNTER 2024-10-28 09:46 | Outpatient (AMB) | payer OTHER, BC, SELFPAY ==
--- NOTE | 2024-10-28 09:47 | A.OFFVIS_ITS ---
Vital Signs 10/28/24 09:49 Height 5 ft 8 in Weight 160 lb BMI 24.3 Handedness Right Intake Visit Reasons: OV RT IF&MF crush w/c injury 10/24/24 Wound Check Intake Note: Rudy is a 34 year old right hand dominant male who presents today for a follow up and wound check for his crushing injury of right hand and finger, DOI: 10/24/24. Patient reports his his 2nd and 3rd right digits have been sore. He expresses constant numbness and tingling in the middle finger, says it feels asleep. He has been performing dressing changes daily and cleaning his wound twice a day. Allergies No Known Allergies Allergy (Verified 10/28/24 09:49) HPI HPI OV RT IF&MF crush w/c injury 10/24/24 Wound Check: Details: Rudy is a 34 year old right hand dominant male who presents today for a follow up and wound check for his crushing injury of right hand and finger, DOI: 10/24/24. Patient reports his his 2nd and 3rd right digits have been sore. He expresses constant numbness and tingling in the middle finger, says it feels asleep. He has been performing dressing changes daily and cleaning his wound twice a day. 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 Review of Systems Const All systems reviewed & are unremarkable except as noted in HPI and below Physical Exam Vital Signs: BMI result Body Mass Index 24.3 Const General: no acute distress and alert Orientation/consciousness: patient oriented x3 Neuro General: patient oriented x3 Extrem Other: Evaluation of Right Upper Extremity: The patient is alert, oriented, and in no acute distress Neuro: Median, Ulnar, Radial nerves motor and sensory intact and sensation is normal to the tips of all digits, except for numbness to the middle finger radial digital nerve distribution, normal sensation to the ulnar nerve distribution. Intact sensation to the ulnar digital nerve distribution of the middle finger Vascular: Cap refill brisk ROM: He can bring his MCP joints into full flexion extension. Good FDP and FDS tendon function to the index ring and small fingers. Good FDS tendon function to the middle finger, difficult to assess FDP tendon function at this time, though he appears to demonstrate a small amount of D IP flexion Complex laceration dorsal aspect, extending over radial to the volar side, of the middle finger Oblique laceration extending from the dorsal DIP joint to the volar radial aspect and up to the PIP joint Radiographs: 3 views of the right hand were taken and viewed by me today in clinic. They show an index finger oblique distal phalanx fracture, minimally displaced, and a middle finger distal phalanx tuft fracture, involving the radial side of the tuf t, minimally displaced Psych Appearance: grossly normal Affect: normal affect Attitude: cooperative Assessment & Plan Assessment & Plan (1) Open fracture of distal phalanx of right middle finger: Code(s): S62.632B - Displaced fracture of distal phalanx of right middle finger, initial encounter for open fracture Category: Medical (2) Fracture of distal phalanx of right index finger: Code(s): S62.630A - Displaced fracture of distal phalanx of right index finger, initial encounter for closed fracture Category: Medical (3) Numbness of right hand: Code(s): R20.0 - Anesthesia of skin Category: Medical (4) Crushing injury of right hand and finger: Code(s): S67.21XA - Crushing injury of right hand, initial encounter Category: Medical Plan Assessment & Plan: 1. Right middle finger distal phalanx radial tuft fracture, open From a crush injury at work, DOI: 10/24/24 Seen in ED & sutured: 10/24/24 2. Right middle finger complex laceration and radial digital nerve numbness, S/P crush injury 3. Right index finger distal phalanx fracture, oblique, closed From a crush injury at work, DOI: 10/24/24 These are work related injuries I educated him and his about this condition I discussed treatment options We will manage this non-operatively He was fitted for an index & middle finger spica splint, allowing for DIP joint ROM, for the next 2 weeks. I explained the signs and symptoms of infection, if the patient develops any new or worsening erythema, drainage, pain, or warmth they should contact the clinic or attend the ED. 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 I explained he will likely be out of work for 4-8 weeks total, as he says there is no light duty for him Follow-up for previously scheduled appointment next week with Dr. Grajeda, sooner with any acute concerns Coding Level of Care Code Global (73126) Diagnoses Open fracture of distal phalanx of right middle finger S62.632B Fracture of distal phalanx of right index finger S62.630A Numbness of right hand R20.0 Crushing injury of right hand and finger S67.21XA
[2024-10-28 09:49] VITALS: BMI 24.3
--- OUTSIDE RECORDS SUMMARY | 2024-10-28 10:51 | XMS_ITS | Encounter Summary ---
Author Organization [facility] Address [address] [place] [address] Care Team Providers Care Library Circulation Clerk Name Role Phone Emily Archibald BAR TACKER Primary Care Provider [phone] Encounter Details Date Type Department Care Team (Late st Contact Info) Description 05/11/2024 3:31 PM EDT Hospital Encounter TH HISTORIC ENCOUNTERS EASTERN CONVERSION ONLY Emily Archibald, BAR TACKER [address] [place] [address] Social History Tobacco Use Types Packs/Day Years [...] the viibryd at this time. Pt sees [facility] therapy weekly and he spoke with a weapons specialist there in that office, and she [...] of 100 with a therapist at [facility] and he was told he could do the path of stimulants or continue down the path that he is on now and add something like a wellbutrin. Pt is unsure if he wants [facility] to take over his medications at this time or if he wants to continue with us handling his medications. Pt does have a follow up in May with [facility] to see if his medicationsover the next 6 weeks are keeping him in a good place or if he feels he needs to take different steps with [facility] and have them take over his medications. [...] the viibryd at this time. Pt sees [facility] therapy weekly and he spoke with a weapons specialist there in that office, and she [...] of 100 with a therapist at [facility] and he was told he could do the path of stimulants or continue down the path that he is on now and add something like a wellbutrin. Pt is unsure if he wants [facility] to take over his medications at this time or if he wants to continue with us handling his medications. Pt does have a follow up in May with [facility] tosee if his medications over the next 6 weeks are keeping him in a good place or if he feels he needs to take different steps with [facility] and have them take over his medications. [...] in visit on 07/22/23 POCT Influenza A/B (72503 X2 w/ Mod 59) Result Value Ref [...] on filedocumented in this encounter Care Teams Library Circulation Clerk Relationship Specialty Start Date End Date Emily Archibald NP [address] [place] [address] PCP - General Pediatrics 10/05/20 documented as of this encounter
--- OUTSIDE RECORDS SUMMARY | 2024-10-28 10:52 | XMS_ITS | Encounter Summary ---
Author Organization [facility] Address [address] [facility] [address] [place] [address] Phone Care Team Providers Care Forepart Rasper Name Role Phone Shaun Edwards MD Primary Care Provider [phone] Encounter Details Date Type Department Care Team ([facility] st Contact Info) Description 05/30/2024 Ophth Exam [facility] Emergency Department [address] [place] [address] Justin Gibbs MD [address] [place] [address] [email or web address] Social History Tobacco Use Types Packs/Day Years [...] on filedocumented in this encounter Care Teams Forepart Rasper Relationship Specialty Start Date End Date Shaun Edwards MD PCP - General 01/24/14 documented as of this encounter Additional Source Comments The information contained in this document represents components of the legal health record. It is not the complete legal health record.[facility]
--- OUTSIDE RECORDS SUMMARY | 2024-10-28 10:52 | XMS_ITS | Clinical Summary ---
Author Organization [facility] Address [address] [place] [address] Care Team Providers Care Straightener Name Role Phone Unavailable Primary Care Provider [...]
--- OUTSIDE RECORDS SUMMARY | 2024-10-28 10:52 | XMS_ITS | Clinical Summary ---
Author Organization [facility] Address [address] [place], [place] [id number] Care Team Providers Care Electronics Worker Name Role Phone Emily Archibald CARRIE Primary [...] often do you attend chur ch or hinduism services? More than 4 times per year 03/07/2022 Do you belong to any clubs o r organizations such as adventist groups, unions, fraternal or athletic groups, or [...] place to sleep or slept in a [facility] (including now)? No 03/07/2022 Sex and Gender [...] age to complete this topic Care Teams Electronics Worker Relationship Specialty Start Date End Date Emily Archibald APRN PCP - General Pediatrics 10/05/20
--- OUTSIDE RECORDS SUMMARY | 2024-10-28 10:52 | XMS_ITS | Clinical Summary ---
Author Organization [facility] [place] [address] Phone Care Team Providers Care Learning Solutions Specialist Name Role Phone Emily Archibald NP Primary Care Provider [phone] Medical History Medical History Date Comments Anxiety [...] age to complete this topic Care Teams Learning Solutions Specialist Relationship Specialty Start Date End Date Emily Archibald NP [address] [place] [address] PCP - General Pediatrics 10/05/20
--- OUTSIDE RECORDS SUMMARY | 2024-10-28 10:52 | XMS_ITS | Clinical Summary ---
Author Organization [facility] Address [address] [address] Phone Care Team Providers Care Cleaning Attendant Name Role Phone Shaun Edwards MD Primary Care Provider [phone] Allergies No known active allergies Medications Medication [...] Medical Devices Not on file Care Teams Cleaning Attendant Relationship Specialty Start Date End Date Shaun Edwards MD PCP - General 01/24/14 Additional Source Comments The information contained in this document represents components of the legal health record. It is not the complete legal health record.[facility]
== END 2024-10-28 10:16 | disposition home or self-care (01) ==
LOC: HO.HOS 09:46
PROVIDERS: PCP Nurse Practitioner
DX: S62.632B Displaced fracture of distal phalanx of right middle finger, initial encounter for open fracture (principal); S62.630A Displaced fracture of distal phalanx of right index finger, initial encounter for closed fracture; R20.0 Anesthesia of skin; S67.21XA Crushing injury of right hand, initial encounter
CPT/HCPCS: 99024

== ENCOUNTER → 2024-10-28 09:46 | Outpatient (BNVA) | payer OTHER, BC, SELFPAY | PROVIDERS: PCP Nurse Practitioner | DX: S62.632D Displaced fracture of distal phalanx of right middle finger, subsequent encounter for fracture with routine healing (principal); S62.630D Displaced fracture of distal phalanx of right index finger, subsequent encounter for fracture with routine healing; S67.21XD Crushing injury of right hand, subsequent encounter; R20.0 Anesthesia of skin | CPT/HCPCS: 99212 ==

== ENCOUNTER 2024-11-02 10:16 | Outpatient (AMB) | payer OTHER, BC, SELFPAY ==
--- NOTE | 2024-11-02 10:21 | A.OFFVIS_ITS ---
Vital Signs 11/02/24 10:22 Height 5 ft 8 in Weight 160 lb BMI 24.3 Intake Visit Reasons: OV-F/C RT IF&MF crush w/c injury 10/24/24 Intake Note: Rudy is a 34 year old right hand dominant male who presents today for a follow up and wound check for his crushing injury of right hand and finger, DOI: 10/24/24. Patient reports that he is doing well, he continues to have a throbbing discomfort, however this is expected. Denies any discharge. He continues to take antibiotics, states medication causes dizziness. Allergies No Known Allergies Allergy (Verified 10/28/24 09:49) HPI HPI OV-F/C RT IF&MF crush w/c injury 10/24/24: Details: Rudy is a 34 year old right hand dominant man, here with his , for his right index & middle finger crush injury, DOI: 10/24/24. This occurred at work while attempting to attach a trailer to a truck. This is a work related injury. 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 He is here for a wound check. Says his fingers are starting to feel little better. He continues to take his PO Abx as instructed, but mentions this causes him some nausea. He says he has a Hx of a right index finger tendon laceration repair done at 16. He says he does not have full ROM of his index finger following this surgery. 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 Review of Systems Const All systems reviewed & are unremarkable except as noted in HPI and below Physical Exam Vital Signs: BMI result Body Mass Index 24.3 Const General: no acute distress and alert Orientation/consciousness: patient oriented x3 Neuro General: patient oriented x3 Extrem Other: Evaluation of Right Upper Extremity: The patient is alert, oriented, and in no acute distress Neuro: Median, Ulnar, Radial nerves motor and sensory intact and sensation is no rmal to the tips of all digits, except for numbness to the middle finger radial digital nerve distribution, normal sensation to the ulnar digital nerve distribution. Vascular: Cap refill brisk ROM: He can bring his MCP joints into full flexion extension. Good FDP and FDS tendon function to the index ring and small fingers. Good FDS tendon function to the middle finger. Better able to demonstrate FDP tendon function in the middle finger today Complex laceration dorsal aspect, extending over radial to the volar side, of the middle finger, healing well Oblique laceration extending from the dorsal DIP joint to the volar radial aspect and up to the PIP joint, healing well Some sutures removed today in clinic Still has significant swelling to the middle finger Improved swelling to the index finger Radiographs: 3 views of the right hand from 10/25/24 were reviewed by me today in clinic. They show an index finger oblique distal phalanx fracture, minimally displaced, and a middle finger distal phalanx tuft fracture, involving the radial side of the tuft, minimally displaced Psych Appearance: grossly normal Affect: normal affect Attitude: cooperative Assessment & Plan Assessment & Plan (1) Open fracture of distal phalanx of right middle finger: Code(s): S62.632B - Displaced fracture of distal phalanx of right middle finger, initial encounter for open fracture Category: Medical (2) Fracture of distal phalanx of right index finger: Code(s): S62.630A - Displaced fracture of distal phalanx of right index finger, initial encounter for closed fracture Category: Medical (3) Numbness of right hand: Code(s): R20.0 - Anesthesia of skin Category: Medical (4) Crushing injury of right hand and finger: Code(s): S67.21XA - Crushing injury of right hand, initial encounter Category: Medical Plan Assessment & Plan: 1. Right middle finger distal phalanx radial tuft fracture, open From a crush injury at work, DOI: 10/24/24 Seen in ED & sutured: 10/24/24 2. Right middle finger complex laceration and radial digital nerve numbness, S/P crush injury 3. Right index finger distal phalanx fracture, oblique, closed From a crush injury at work, DOI: 10/24/24 These are work related injuries I educated him and his about this condition I discussed treatment options We will manage this non-operatively He will continue to wear his index & middle finger spica splint, allowing for DIP joint ROM, for the next 2 weeks. I explained the signs and symptoms of infection, if the patient develops any new or worsening erythema, drainage, pain, or warmth they should contact the clinic or attend the ED. 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 I explained he will likely be out of work for 4-8 weeks total, as he says there is no light duty for him He will follow up next week for a wound check, anticipate suture removal Scribed for Joann Grajeda MD by Bhavesh Rice, medical care administrator, on 11/02/24 at 10:30 AM, EST. Coding Level of Care Code Global (46407) Diagnoses Open fracture of distal phalanx of right middle finger S62.632B Fracture of distal phalanx of right index finger S62.630A Numbness of right hand R20.0 Crushing injury of right hand and finger S67.21XA
[2024-11-02 10:22] VITALS: BMI 24.3
--- OUTSIDE RECORDS SUMMARY | 2024-11-02 11:37 | XMS_ITS | Clinical Summary ---
Author Organization [facility] Address [address] [place] [address] Care Team Providers Care Room Attendant Name Role Phone Unavailable Primary Care Provider [...]
--- OUTSIDE RECORDS SUMMARY | 2024-11-02 11:37 | XMS_ITS | Clinical Summary ---
Author Organization [facility] [place] [address] Phone Care Team Providers Care Criminal Justice Faculty Name Role Phone Emily Archibald NP Primary Care Provider Medical History Medical History Date Comments Anxiety [...] age to complete this topic Meningococcal B Vaccine Aged Out No l onger eligible based on patient's age to complete [...] age to complete this topic Care Teams Criminal Justice Faculty Relationship Specialty Start Date End Date Emily Archibald NP [address] [place] [address] PCP - General Pediatrics 10/05/20
--- OUTSIDE RECORDS SUMMARY | 2024-11-02 11:37 | XMS_ITS | Encounter Summary ---
Author Organization [facility] Address [address] [facility] [address] [place] [address] Phone Care Team Providers Care Conductor And Engineer Name Role Phone Shaun Edwards MD Primary Care Provider [phone] Encounter Details Date Type Department Care Team ([facility] st Contact Info) Description 05/30/2024 Ophth Exam [facility] Emergency Department [address] [place] [address] Justin Gibbs MD [address] [place] [address] [email or web address] Social History Tobacco Use Types Packs/Day Years [...] on filedocumented in this encounter Care Teams Conductor And Engineer Relationship Specialty Start Date End Date Shaun Edwards MD PCP - General 01/24/14 documented as of this encounter Additional Source Comments The information contained in this document represents components of the legal health record. It is not the complete legal health record.[facility]
--- OUTSIDE RECORDS SUMMARY | 2024-11-02 11:37 | XMS_ITS | Clinical Summary ---
Author Organization [facility] Address [address] [address] Phone Care Team Providers Care Shellfish Harvester Name Role Phone Shaun Edwards MD Primary Care Provider [phone] Allergies No known active allergies Medications Medication [...] LIPID PANEL 1988 DEPRESSION SCREENING 2000 HEPATITIS C SCREENING 01/10/2006 HIV ONE-TIME SCREENING (18-6 5 YEARS) 01/10/2006 INFLUENZA VACCINE (#1) 2024 COVID-19 VACCINE (2023-2 5 season) 2024 Adult Td,Tdap Booster 10/11/2028 [...] Medical Devices Not on file Care Teams Shellfish Harvester Relationship Specialty Start Date End Date Shaun Edwards MD PCP - General 01/24/14 Additional Source Comments The information contained in this document represents components of the legal health record. It is not the complete legal health record.[facility]
--- OUTSIDE RECORDS SUMMARY | 2024-11-02 11:37 | XMS_ITS | Clinical Summary ---
Author Organization [facility] Address [address] [place], [place] [id number] Care Team Providers Care Lime Sludge Mixer Name Role Phone Emily Archibald CARRIE Primary [...] often do you attend chur ch or sikhism services? More than 4 times per year 03/07/2022 Do you belong to any clubs o r organizations such as samaritan groups, unions, fraternal or athletic groups, or [...] place to sleep or slept in a skilled nursing (including now)? No 03/07/2022 Sex and Gender [...] age to complete this topic Care Teams Lime Sludge Mixer Relationship Specialty Start Date End Date Emily Archibald APRN PCP - General Pediatrics 10/05/20
--- OUTSIDE RECORDS SUMMARY | 2024-11-02 11:37 | XMS_ITS | Encounter Summary ---
Author Organization [facility] Address [address] [place] [address] Care Team Providers Care Occupational Therapy Aide Name Role Phone Emily Archibald REHABILITATION AIDE Primary Care Provider [phone] Encounter Details Date Type Department Care Team (Late st Contact Info) Description 05/11/2024 3:31 PM EDT Hospital Encounter TH HISTORIC ENCOUNTERS EASTERN CONVERSION ONLY Emily Archibald, REHABILITATION AIDE [address] [place] [address] Social History Tobacco Use Types Packs/Day Years [...] viibryd at this time. Pt sees [facility] therapy weekly and he spoke with a audio specialist there in that office, and she [...] out of 100 with a therapist at [facility] and he was told he could do the path of stimulants or continue down the path that he is on now and add something like a wellbutrin. Pt is unsure if he wants [facility] to take over his medications at this time or if he wants to continue with us handling his medications. Pt does have a follow up in May with [facility] to see if his medicationsover the next 6 weeks are keeping him in a good place or if he feels he needs to take different steps with [facility] and have them take over his [...] viibryd at this time. Pt sees [facility] therapy weekly and he spoke with a audio specialist there in that office, and she [...] out of 100 with a therapist at [facility] and he was told he could do the path of stimulants or continue down the path that he is on now and add something like a wellbutrin. Pt is unsure if he wants [facility] to take over his medications at this time or if he wants to continue with us handling his medications. [facility] medications over the next 6 weeks are keeping him in a good place or if he feels he needs to take different steps with [facility] and have them take over his [...] in visit on 07/22/23 POCT Influenza A/B (30650 X2 w/ Mod 59) Result Value Ref [...] on filedocumented in this encounter Care Teams Occupational Therapy Aide Relationship Specialty Start Date End Date Emily Archibald NP [address] [place] [address] PCP - General Pediatrics 10/05/20 documented as of this encounter
--- OUTSIDE RECORDS SUMMARY | 2024-11-02 11:37 | XMS_ITS | Data Portability ---
Author Organization [place] [facility] [facility], [employer] - [employer] [facility] Address [address] [place] [address] Assessment No assessment recorded. Plan of Treatment Reminders Order Date Submit Date Provider Last Modified By Organization Details Last Modified Time Details Appointments OFFICE VISIT 15 2024 09:30A M Emily Archibald, DNP, UNDERGROUND HEAVY EQUIPMENT OPERATOR Not available Not available Not available Lab urinalysi s, dipstick 2024[facility] [id number] , [address], [place], [address], 09/19/2024 12:55:04 Referral None recorded. Procedures None recorded. Surgeries None recorded. Imaging None recorded. Medication Orders escitalop avila 20 mg tablet 2024[id number], [address] [facility], [place], [address], 09/19/2024 12:55:04 Patient TargetsNo targets recorded. Patient Instructions Encounter Date Encounter Id Patient Instructions Last Modified By Organization Details Last Modified Time 09/16/2024 [id number] Patient presente d to office today for their well check Visit. Education was provided on healthy nutrition, including a diet rich in fruits and vegetables, minimizing simple carbohydrates, salt, and saturated fats. Encouraged regular cardiovascular exercise. Emphasized preventive health measures and educated pt/caregiver lifestyle interventions to help reduce health risks and promote healthy living. [email or web address] Not available 09/16/2024 09:56:15 - Informed pt [...] other questions or concerns at this time [email or web address] Not available 09/16/2024 09:59:49 Reason for Referral None Reported. Results Created Date Observation Date Name Description Value Unit Range Abnormal Flag Note LastModifiedBy Organization Detail LastModifiedTime 09/16/19 25 09/16/2024 urina lysis , dipst ick Leukocytes Negati ve Not Available [id number] cp [address], [place], [address], 09/16/2024 09:56:35 09/16/19 25 09/16/2024 urina lysis , dipst ick Nitrite negati ve Not Available [id number] cp [address], [place], [address], 09/16/2024 09:56:35 09/16/19 25 09/16/2024 urina lysis , dipst ick Urobilinogen .2 Not Available [id number]_bp_pcp [address], [place], [address], 09/16/2024 09:56:35 09/16/19 25 09/16/2024 urina lysis , dipst ick Protein Negati ve Not Available [id number]_hn_l cp [address], [place], [address], 09/16/2024 09:56:35 09/16/19 25 09/16/2024 urina lysis , dipst ick pH 7.5 Not Available [id number]_ pcp [address], [place], [address], 09/16/2024 09:56:35 09/16/19 25 09/16/2024 urina lysis , dipst ick Blood Negati ve Not Available [id number] cp [address], [place], [address], 09/16/2024 09:56:35 09/16/19 25 09/16/2024 urina lysis , dipst ick Specific [place] 1.005 Not Available [id number] _bp_pcp [address], [place], [address], 09/16/2024 09:56:35 09/16/19 25 09/16/2024 urina lysis , dipst ick Ketone Negati ve Not Available [id number]_d cp [address], [place], [address], 09/16/2024 09:56:35 09/16/19 25 09/16/2024 urina lysis , dipst ick Bilirubin Negati ve Not Available [id number]_e cp [address], [place], [address], 09/16/2024 09:56:35 09/16/19 25 09/16/2024 urina lysis , dipst ick Glucose Negati ve Not Available [id number]_n cp [address], [place], [address], 09/16/2024 09:56:35 09/16/19 25 09/16/2024 urina lysis , dipst ick Appearance Clear Not Available Smg121_ bp_pcp [address], [place], [address], 09/16/2024 09:56:35 09/16/19 25 09/16/2024 urina lysis , dipst ick Color Yellow Not Available [id number]_ pcp [address], [place], [address], 09/16/2024 09:56:35 Result Notes None recorded. 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 Medical [...] DateTime 5 172.699 68 cm 25.1 kg/m2 05024.3 8 g 72 /min 96 % 96 % 96.3 [degF] 110 mm[Hg] 68 mm[Hg] [facility] 5 09:30:25 Social History Question Answer Notes LastModified by Organizat ion Details LastModified Time Tobacco Smoking Status Never Smoker [facility] 09/16/2024 09:32:18 What Is Your Level Of Alcohol Consumption? None [email or web address] Information not available 09/16/2024 Do You Use Protection Against STDs? No [email or web address] Information not available 09/16/2024 What Is Your Relationship Status? [email or web address] Information not available 09/16/2024 Are You Sexually Active? Yes [email or web address] Information not available 09/16/2024 Do You Use Any Illicit Or Recreational Drugs? No Information not available 09/16/2024 Do You Or Have You Ever Used Any Other Forms Of Tobacco Or Nicotine? No [email or web address] Information not available 09/16/2024 Sex: Unknown Functional Status None recorded. Mental Status None recorded. Family History Relationship Description Onset Age of this Age Resolved Age Notes LastModified by Organization Details LastModified Time Father No current problems or disability [email or web address] Not available 09/16 09:31:53 Mother No current problems or disability [email or web address] Not available 09/16 09:31:53 Brother Problem No [...] SNOMED-CT Code Diagnosis ICD10 Code Diagnosis Note [id number] Emily Archibald DNP, UNDERGROUND HEAVY EQUIPMENT OPERATOR [id number] _[id number] [address] [place] [address] 09/16/2024 09:17:40 09/16/2024 10:01:35 Active or passive immunization 775404172 Z23 Adult heal th examination 773347065 Z00.00 Moderate r ecurrent major depression 10599559 F33.1 Health Concerns Section Related Observation LastModified by Organization Detai ls LastModified Time None Recorded Concern Status LastModified by Organization Details LastModified Time None Recorded Advance Directives Directive None Recorded Payers Encounter Date Sequence Insurance Name Policy Number Policy Weston Covered Member ID Weston Member ID Guarantor Name 09/16/2024 1 [place] [facility] [id number] Rudy Ortiz [id number] Rudy Ortiz Notes Date Note Type [...] the medication is working well. Pt sees [facility] weekly. No other specialists seen routinely. No other questions or concerns at this time. Emily Archibald DNP, UNDERGROUND HEAVY EQUIPMENT OPERATOR [address], [place], [address], [place] [facility] 10/03/2024 09:54:04
== END 2024-11-02 10:59 | disposition home or self-care (01) ==
LOC: HO.HOS 10:17
PROVIDERS: PCP Nurse Practitioner; Visit Provider Orthopaedic Surgery
DX: S62.632B Displaced fracture of distal phalanx of right middle finger, initial encounter for open fracture (principal); S62.630A Displaced fracture of distal phalanx of right index finger, initial encounter for closed fracture; R20.0 Anesthesia of skin; S67.21XA Crushing injury of right hand, initial encounter
CPT/HCPCS: 99024

== ENCOUNTER → 2024-11-02 10:16 | Outpatient (BNVA) | payer OTHER, BC, SELFPAY | PROVIDERS: PCP Nurse Practitioner; Visit Provider Orthopaedic Surgery | DX: S62.632D Displaced fracture of distal phalanx of right middle finger, subsequent encounter for fracture with routine healing (principal); S62.630D Displaced fracture of distal phalanx of right index finger, subsequent encounter for fracture with routine healing; S67.21XD Crushing injury of right hand, subsequent encounter; R20.0 Anesthesia of skin | CPT/HCPCS: 99212 ==

== ENCOUNTER 2024-11-09 09:06 | Outpatient (REF) | payer OTHER, BC, SELFPAY ==
--- NOTE | ~2024-11-09 | XR_ITS ---
EXAMINATION: XR HAND 3 OR MORE VIEWS RIGHT HISTORY: M79.641 - Pain in right hand COMPARISON: Comparison is made with the prior examination dated 10/24/2024. FINDINGS: Three views of the right hand are submitted. Osseous mineralization is normal. Again seen are fractures of the distal krista of the index and middle fingers. The fracture lines remain visible. No new fracture is seen. There is no dislocation. The joint spaces are preserved. The soft tissues are unremarkable. XR/XR hand RT min 3V IMPRESSION: Fractures of the distal krista of the index and middle fingers without change. Electronically signed by: Andrade Flynn MD 11/10/2024 07:55 AM EDT
--- OUTSIDE RECORDS SUMMARY | 2024-11-10 10:00 | XMS_ITS | Clinical Summary ---
Author Organization [facility] Address [address] [address] Phone Care Team Providers Care Wind Turbine Erector Name Role Phone Shaun Edwards MD Primary Care Provider [phone] Allergies No known active allergies Medications Medication [...] Medical Devices Not on file Care Teams Wind Turbine Erector Relationship Specialty Start Date End Date Shaun Edwards MD PCP - General 01/24/14 Additional Source Comments The information contained in this document represents components of the legal health record. It is not the complete legal health record.[facility]
--- OUTSIDE RECORDS SUMMARY | 2024-11-10 10:00 | XMS_ITS | Clinical Summary ---
Author Organization [facility] Address [address] [place] [address] Care Team Providers Care Senior Environmental Technician Name Role Phone Unavailable Primary Care Provider [...]
--- OUTSIDE RECORDS SUMMARY | 2024-11-10 10:00 | XMS_ITS | Clinical Summary ---
Author Organization [facility] Address [address] [place], [place] [id number] Care Team Providers Care Internal Control Consultant Name Role Phone Emily Archibald CARRIE Primary [...] often do you attend chur ch or jainism services? More than 4 times per year 03/07/2022 Do you belong to any clubs o r organizations such as anabaptist groups, unions, fraternal or athletic groups, or [...] place to sleep or slept in a halfway (including now)? No 03/07/2022 Sex and Gender [...] age to complete this topic Care Teams Internal Control Consultant Relationship Specialty Start Date End Date Emily Archibald APRN PCP - General Pediatrics 10/05/20
--- OUTSIDE RECORDS SUMMARY | 2024-11-10 10:00 | XMS_ITS | Encounter Summary ---
Author Organization [facility] Address [address] [facility] [address] [place] [address] Phone Care Team Providers Care Instructional Materials Director Name Role Phone Shaun Edwards MD Primary Care Provider [phone] Encounter Details Date Type Department Care Team ([facility] st Contact Info) Description 05/30/2024 Ophth Exam [facility] [address] [place] [address] Justin Gibbs MD [address] [place] [address] [email or web address] Social History Tobacco Use Types Packs/Day Years [...] on filedocumented in this encounter Care Teams Instructional Materials Director Relationship Specialty Start Date End Date Shaun Edwards MD PCP - General 01/24/14 documented as of this encounter Additional Source Comments The information contained in this document represents components of the legal health record. It is not the complete legal health record.[facility]
--- OUTSIDE RECORDS SUMMARY | 2024-11-10 10:00 | XMS_ITS | Clinical Summary ---
Author Organization [facility] [place] [address] Phone Care Team Providers Care Betting Clerk Name Role Phone Emily Archibald NP Primary Care Provider [phone] Medical History Medical History Date Comments Anxiety [...] age to complete this topic Care Teams Betting Clerk Relationship Specialty Start Date End Date Emily Archibald NP [address] [place] [address] PCP - General Pediatrics 10/05/20
--- OUTSIDE RECORDS SUMMARY | 2024-11-10 10:00 | XMS_ITS | Data Portability ---
Author Organization [place] [facility], autoContract - [facility] Address [address] [place] [address] Assessment No assessment recorded. Plan of Treatment Reminders Order Date Submit Date Provider Last Modified By Organization Details Last Modified Time Details Appointments OFFICE VISIT 15 2024 09:30A M Emily Archibald, DNP, ASSIGNMENT AGENT Not available Not available Not available Lab urinalysi s, dipstick 2024[facility] [id number]_po_zhl , [address], [place], [address], 09/19/2024 12:55:04 Referral None recorded. Procedures None recorded. Surgeries None recorded. Imaging None recorded. Medication Orders escitalop avila 20 mg tablet 20[id number], [address], [place], [address], 09/19/2024 12:55:04 Patient TargetsNo targets recorded. Patient Instructions Encounter Date Encounter Id Patient Instructions Last Modified By Organization Details Last Modified Time 09/16/2024 [id number] Patient presente d to office today for their well check Visit. Education was provided on healthy nutrition, including a diet rich in fruits and vegetables, minimizing simple carbohydrates, salt, and saturated fats. Encouraged regular cardiovascular exercise. Emphasized preventive health measures and educated pt/caregiver lifestyle interventions to help reduce health risks and promote healthy living. [email or web address] Not available 09/16/2024 09:56:15 - Informed pt [...] other questions or concerns at this time [email or web address] Not available 09/16/2024 09:59:49 Reason for Referral None Reported. Results Created Date Observation Date Name Description Value Unit Range Abnormal Flag Note LastModifiedBy Organization Detail LastModifiedTime 09/16/19 25 09/16/2024 urina lysis , dipst ick Leukocytes Negati ve Not Available Lrt551_hb_x cp [address], [place], [address], 09/16/2024 09:56:35 09/16/19 25 09/16/2024 urina lysis , dipst ick Nitrite negati ve Not Available Dno792_pq_i cp [address], [place], [address], 09/16/2024 09:56:35 09/16/19 25 09/16/2024 urina lysis , dipst ick Urobilinogen .2 Not Available Smg12 1_bp_pcp [address], [place], [address], 09/16/2024 09:56:35 09/16/19 25 09/16/2024 urina lysis , dipst ick Protein Negati ve Not Available Fch169_lg_f cp [address], [place], [address], 09/16/2024 09:56:35 09/16/19 25 09/16/2024 urina lysis , dipst ick pH 7.5 Not Available Ltg411_kb_ pcp [address], [place], [address], 09/16/2024 09:56:35 09/16/19 25 09/16/2024 urina lysis , dipst ick Blood Negati ve Not Available Kzv198_ij_w cp [address], [place], [address], 09/16/2024 09:56:35 09/16/19 25 09/16/2024 urina lysis , dipst ick Specific [place] 1.005 Not Available Xex915 _bp_pcp [address], [place], [address], 09/16/2024 09:56:35 09/16/19 25 09/16/2024 urina lysis , dipst ick Ketone Negati ve Not Available Nne355_vn_c cp [address], [place], [address], 09/16/2024 09:56:35 09/16/19 25 09/16/2024 urina lysis , dipst ick Bilirubin Negati ve Not Available Kce492_ja_f cp [address], [place], [address], 09/16/2024 09:56:35 09/16/19 25 09/16/2024 urina lysis , dipst ick Glucose Negati ve Not Available Nma211_zm_n cp [address], [place], [address], 09/16/2024 09:56:35 09/16/19 25 09/16/2024 urina lysis , dipst ick Appearance Clear Not Available Smg121_ bp_pcp [address], [place], [address], 09/16/2024 09:56:35 09/16/19 25 09/16/2024 urina lysis , dipst ick Color Yellow Not Available Ayb030_op_ pcp [address], [place], [address], 09/16/2024 09:56:35 Result Notes None recorded. Problems Name Problem SNOMED Code Status Onset Date Resolution Date Notes Provider Name and Address Organization Details Recorded Time Thyroid nodule 203150229 Active 2011 Thyroid nodule; IDM7Okgi ription: Thyroid nodule; QJK71Tqh cription : Thyroid nodule; NPI: [id number] 84; Not Available [facility] 5 09:46:16 Anxiety 98629179 Active 2022 Anxiety; ATJ9Bpmg ription: Anxiety; ZOO63Pyy cription : Anxiety; NPI: [id number] 84; Not Available [facility] 5 09:46:16 Moderate recurrent major depression 53046350 Active 2024 Emily Archibald DNP, ASSIGNMENT AGENT [address] [place], [address] , [facility] 5 09:46:53 Generalized anxiety disorder 40454055 Active 2024 Emily Archibald DNP, ASSIGNMENT AGENT [address], [place], [address] , [facility] 5 09:46:59 Problem Notes None recorded. [...] DateTime 5 172.699 68 cm 25.1 kg/m2 89731.3 8 g 72 /min 96 % 96 % 96.3 [degF] 110 mm[Hg] 68 mm[Hg] [facility] 5 09:30:25 Social History Question Answer Notes LastModified by Organizat ion Details LastModified Time Tobacco Smoking Status Never Smoker [facility] 09/16/2024 09:32:18 What Is Your Level Of Alcohol Consumption? None [email or web address] Information not available 09/16/2024 Do You Use Protection Against STDs? No [email or web address] Information not available 09/16/2024 What Is Your Relationship Status? [email or web address] Information not available 09/16/2024 Are You Sexually Active? Yes [email or web address] Information not available 09/16/2024 Do You Use Any Illicit Or Recreational Drugs? No Information not available 09/16/2024 Do You Or Have You Ever Used Any Other Forms Of Tobacco Or Nicotine? No [email or web address] Information not available 09/16/2024 Sex: Unknown Functional Status None recorded. Mental Status None recorded. Family History Relationship Description Onset Age of this Age Resolved Age Notes LastModified by Organization Details LastModified Time Father No current problems or disability [email or web address] Not available 09/16 09:31:53 Mother No current problems or disability [email or web address] Not available 09/16 09:31:53 Brother Problem No [...] SNOMED-CT Code Diagnosis ICD10 Code Diagnosis Note [id number] Emily Archibald DNP, ASSIGNMENT AGENT QWL336_BG _PCP [address] [place] [address] 09/16/2024 09:17:40 09/16/2024 10:01:35 Active or passive immunization 698645552 Z23 Adult heal th examination 931289638 Z00.00 Moderate r ecurrent major depression 88967361 F33.1 Health Concerns Section Related Observation LastModified by Organization Detai ls LastModified Time None Recorded Concern Status LastModified by Organization Details LastModified Time None Recorded Advance Directives Directive None Recorded Payers Encounter Date Sequence Insurance Name Policy Number Policy Weston Covered Member ID Weston Member ID Guarantor Name 09/16/2024 1 [place] [facility] [id number] Rudy Ortiz [id number] Rudy Ortiz Notes Date Note Type [...] medication is working well. Pt sees [facility] therapy weekly. No other specialists seen routinely. No other questions or concerns at this time. Emily Archibald DNP, ASSIGNMENT AGENT [address], [place], [address], [place] [facility] 10/03/2024 09:54:04
--- OUTSIDE RECORDS SUMMARY | 2024-11-10 10:00 | XMS_ITS | Encounter Summary ---
Author Organization [facility] Address [address] [place] [address] Care Team Providers Care Internal Grinding Machine Operator Name Role Phone Emily Archibald CO FOUNDER AND CHIEF STRATEGY OFFICER Primary Care Provider [phone] Encounter Details Date Type Department Care Team (Late st Contact Info) Description 05/11/2024 3:31 PM EDT Hospital Encounter TH HISTORIC ENCOUNTERS EASTERN CONVERSION ONLY Emily Archibald, CO FOUNDER AND CHIEF STRATEGY OFFICER [address] [place] [address] Social History Tobacco Use Types Packs/Day Years [...] the viibryd at this time. Pt sees [facility] therapy weekly and he spoke with a grounds restoration specialist there in that office, and she [...] out of 100 with a therapist at [facility] and he was told he could do the path of stimulants or continue down the path that he is on now and add something like a wellbutrin. Pt is unsure if he wants [facility] to take over his medications at this time or if he wants to continue with us handling his medications. Pt does have a follow up in May with [facility] to see if his medicationsover the next 6 weeks are keeping him in a good place or if he feels he needs to take different steps with [facility] and have them take over his medications. [...] the viibryd at this time. Pt sees [facility] therapy weekly and he spoke with a grounds restoration specialist there in that office, and she [...] out of 100 with a therapist at [facility] and he was told he could do the path of stimulants or continue down the path that he is on now and add something like a wellbutrin. Pt is unsure if he wants [facility] to take over his medications at this time or if he wants to continue with us handling his medications. [facility] medications over the next 6 weeks are keeping him in a good place or if he feels he needs to take different steps with [facility] and have them take over his medications. [...] in visit on 07/22/23 POCT Influenza A/B (41030 X2 w/ Mod 59) Result Value Ref [...] on filedocumented in this encounter Care Teams Internal Grinding Machine Operator Relationship Specialty Start Date End Date Emily Archibald NP [address] [place] [address] PCP - General Pediatrics 10/05/20 documented as of this encounter
== END 2024-11-09 09:07 | disposition home or self-care (01) ==
LOC: HO.HOSX 09:06
PROVIDERS: Visit Provider Orthopaedic Surgery
DX: S62.632B Displaced fracture of distal phalanx of right middle finger, initial encounter for open fracture (principal); S62.630A Displaced fracture of distal phalanx of right index finger, initial encounter for closed fracture; R20.0 Anesthesia of skin; S67.21XA Crushing injury of right hand, initial encounter; X58.XXXA Exposure to other specified factors, initial encounter; Y93.9 Activity, unspecified; Y92.9 Unspecified place or not applicable; Y99.8 Other external cause status
CPT/HCPCS: 73130; 99212

== ENCOUNTER 2024-11-09 09:08 | Outpatient (AMB) | payer OTHER, BC, SELFPAY ==
[2024-11-09 09:20] VITALS: BMI 24.3
--- NOTE | 2024-11-09 09:20 | A.OFFVIS_ITS ---
Vital Signs 11/09/24 09:20 Height 5 ft 8 in Weight 160 lb BMI 24.3 Intake Visit Reasons: OV-F/C RT IF&MF crush w/c injury 10/24/24 Intake Note: Rudy is a 34 year old right hand dominant male who presents today for a follow up and wound check for his crushing injury of right hand and finger, DOI: 10/24/24. States he continues to do daily dressing changes and is doing well. States that his nail was getting caught in clothes and sheets therefore he removed his nail. Allergies No Known Allergies Allergy (Verified 11/09/24 09:26) HPI HPI OV-F/C RT IF&MF crush w/c injury 10/24/24: Details: Rudy is a 34 year old right hand dominant man, here with his , for his right index & middle finger crush injury, DOI: 10/24/24. This occurred at work while attempting to attach a trailer to a truck. This is a work related injury. 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 He is here for a wound check. Says his fingers are starting to feel little better. He says his nail was getting caught on his clothing & his bedsheets, so he removed it. He continues to perform daily dressing changes. He has completed his Abx as instructed, and denies any symptoms of infection. He says he has a Hx of a right index finger tendon laceration repair done at 16. He says he does not have full ROM of his index finger following this surgery. 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 Vascular: Cap refill brisk ROM: He can bring all his fingers closed to a fist and back into full extension Complex laceration dorsal aspect, extending over radial to the volar side, of the middle finger, continues healing well Oblique laceration extending from the dorsal DIP joint to the volar radial aspect and up to the PIP joint, healing well No evidence of infection Some sutures removed today in clinic Still has significant swelling to the middle finger Resolved swelling in the index finger. Subungual hematoma right index finger Radiographs: 3 views of the right hand were taken and viewed by me today in clinic. They show an index finger oblique distal phalanx fracture, minimally displaced, and a middle finger distal phalanx tuft fracture, involving the radial side of the t uft, minimally displaced Psych Appearance: grossly normal Affect: normal affect Attitude: cooperative Assessment & Plan Assessment & Plan (1) Open fracture of distal phalanx of right middle finger: Code(s): S62.632B - Displaced fracture of distal phalanx of right middle finger, initial encounter for open fracture Category: Medical (2) Fracture of distal phalanx of right index finger: Code(s): S62.630A - Displaced fracture of distal phalanx of right index finger, initial encounter for closed fracture Category: Medical (3) Numbness of right hand: Code(s): R20.0 - Anesthesia of skin Category: Medical (4) Crushing injury of right hand and finger: Code(s): S67.21XA - Crushing injury of right hand, initial encounter Category: Medical Plan Assessment & Plan: 1. Right middle finger distal phalanx radial tuft fracture, open From a crush injury at work, DOI: 10/24/24 Seen in ED & sutured: 10/24/24 2. Right middle finger complex laceration and radial digital nerve numbness, S/P crush injury 3. Right index finger distal phalanx fracture, oblique, closed From a crush injury at work, DOI: 10/24/24 These are work related injuries I educated him and his about this condition I discussed treatment options We will manage this non-operatively He will continue to wear his index & middle finger spica splint, allowing for PIP joint ROM, for the next 2 weeks. I explained the signs and symptoms of infection, if the patient develops any new or worsening erythema, drainage, pain, or warmth they should contact the clinic or attend the ED. 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 He was g iven a note for work to remain out of work for the next 3 weeks. I explained he will likely be out of work for 4-8 weeks total, post-injury Some of the sutures were removed today from the middle finger He will follow up next week for a wound check and remaining suture removal He will follow up in 3 weeks with X-rays, 3V R hand, OOP Scribed for Joann Grajeda MD by Bhavesh Rice, medical data entry clerk, on 11/09/24 at 9:35 AM, EST. Orders: Orders XR hand RT min 3V Today M79.641 - Pain in right hand Coding Level of Care Code Global (82042) Diagnoses Open fracture of distal phalanx of right middle finger S62.632B Fracture of distal phalanx of right index finger S62.630A Numbness of right hand R20.0 Crushing injury of right hand and finger S67.21XA
--- OUTSIDE RECORDS SUMMARY | 2024-11-09 09:53 | XMS_ITS | Clinical Summary ---
Author Organization [facility] Address [address] [place], [place] [id number] Care Team Providers Care Heavy Duty Custodian Name Role Phone Emily Archibald CARRIE Primary [...] often do you attend chur ch or voodoo services? More than 4 times per year 03/07/2022 Do you belong to any clubs o r organizations such as latter-day groups, unions, fraternal or athletic groups, or [...] place to sleep or slept in a [place] [facility] facility (including now)? No 03/07/2022 Sex and Gender [...] age to complete this topic Care Teams Heavy Duty Custodian Relationship Specialty Start Date End Date Emily Archibald APRN PCP - General Pediatrics 10/05/20
--- OUTSIDE RECORDS SUMMARY | 2024-11-09 09:53 | XMS_ITS | Clinical Summary ---
Author Organization [facility] [place] [address] Phone Care Team Providers Care Ethanol Quality Leader Name Role Phone Emily Archibald NP Primary Care Provider [phone] Medical History Medical History Date Comments Anxiety DX:Anxiety Thyroid nodule 01/29/2012 DX:Thyroid nodul e Covid-19 DX:COVID-19 Major depressive disorder, r ecurrent episode, moderate (CMS/HCC V24, CMS/HCC V28) 10/22/2022 DX:Major depressive disorder , recurrent episode, moderate (HCC) Right tennis elbow [...] age to complete this topic Care Teams Ethanol Quality Leader Relationship Specialty Start Date End Date Emily Archibald NP [address] [place] [address] PCP - General Pediatrics 10/05/20
--- OUTSIDE RECORDS SUMMARY | 2024-11-09 09:53 | XMS_ITS | Clinical Summary ---
Author Organization [facility] Address [address] [address] Phone Care Team Providers Care Over The Road Driver Name Role Phone Shaun Edwards MD Primary Care Provider [phone] Allergies No known active allergies Medications Medication [...] Medical Devices Not on file Care Teams Over The Road Driver Relationship Specialty Start Date End Date Shaun Edwards MD PCP - General 01/24/14 Additional Source Comments The information contained in this document represents components of the legal health record. It is not the complete legal health record.[facility]
--- OUTSIDE RECORDS SUMMARY | 2024-11-09 09:53 | XMS_ITS | Clinical Summary ---
Author Organization [facility] Address [address] [place] [address] Care Team Providers Care Central Office Equipment Installer Name Role Phone Unavailable Primary Care Provider [...]
--- OUTSIDE RECORDS SUMMARY | 2024-11-09 09:53 | XMS_ITS | Encounter Summary ---
Author Organization [facility] Address [address] [place] [address] Care Team Providers Care Divisional Merchandising Manager Name Role Phone Emily Archibald HISTOPATH TECH Primary Care Provider [phone] Encounter Details Date Type Department Care Team (Late st Contact Info) Description 05/11/2024 3:31 PM EDT Hospital Encounter TH HISTORIC ENCOUNTERS EASTERN CONVERSION ONLY Emily Archibald, HISTOPATH TECH [address] [place] [address] Social History Tobacco Use Types Packs/Day Years [...] viibryd at this time. Pt sees [facility] therapy weekly and he spoke with a auricular detoxification specialist there in that office, and she [...] out of 100 with a therapist at [facility] and he was told he could do the path of stimulants or continue down the path that he is on now and add something like a wellbutrin. Pt is unsure if he wants [facility] to take over his medications at this time or if he wants to continue with us handling his medications. Pt does have a follow up in May with [facility] to see if his medicationsover the next 6 weeks are keeping him in a good place or if he feels he needs to take different steps with [facility] and have them take over [...] viibryd at this time. Pt sees [facility] therapy weekly and he spoke with a auricular detoxification specialist there in that office, and she [...] out of 100 with a therapist at [facility] and he was told he could do the path of stimulants or continue down the path that he is on now and add something like a wellbutrin. Pt is unsure if he wants [facility] to take over his medications at this time or if he wants to continue with us handling his medications. [facility] medications over the next 6 weeks are keeping him in a good place or if he feels he needs to take different steps with [facility] and have them take over [...] in visit on 07/22/23 POCT Influenza A/B (64602 X2 w/ Mod 59) Result Value Ref [...] on filedocumented in this encounter Care Teams Divisional Merchandising Manager Relationship Specialty Start Date End Date Emily Archibald NP [address] [place] [address] PCP - General Pediatrics 10/05/20 documented as of this encounter
--- OUTSIDE RECORDS SUMMARY | 2024-11-09 09:53 | XMS_ITS | Encounter Summary ---
Author Organization [facility] Address [address] [facility] [address] [place] [address] Phone Care Team Providers Care Remarketing Manager Name Role Phone Shaun Edwards MD Primary Care Provider [phone] Encounter Details Date Type Department Care Team ([facility] st Contact Info) Description 05/30/2024 Ophth Exam [facility] [address] [place] [address] Justin Gibbs MD [address] [place] [phone] [email or web address] Social History Tobacco Use Types Packs/Day Years [...] on filedocumented in this encounter Care Teams Remarketing Manager Relationship Specialty Start Date End Date Shaun Edwards MD PCP - General 01/24/14 documented as of this encounter Additional Source Comments The information contained in this document represents components of the legal health record. It is not the complete legal health record.[facility]
--- OUTSIDE RECORDS SUMMARY | 2024-11-09 09:53 | XMS_ITS | Data Portability ---
Author Organization [place] [facility], autoContract - [facility] Address [address] [place] [address] Assessment No assessment recorded. Plan of Treatment Reminders Order Date Submit Date Provider Last Modified By Organization Details Last Modified Time Details Appointments OFFICE VISIT 15 2024 09:30A M Emily Archibald, DNP, PARI MUTUAL TICKET CHECKER Not available Not available Not available Lab urinalysi s, dipstick 2024[facility] [id number]_oyc , [address], [place], [address], 09/19/2024 12:55:04 Referral None recorded. Procedures None recorded. Surgeries None recorded. Imaging None recorded. Medication Orders escitalop avila 20 mg tablet 2024[id number], [address], [place], [address], 09/19/2024 12:55:04 Patient TargetsNo targets recorded. Patient Instructions Encounter Date Encounter Id Patient Instructions Last Modified By Organization Details Last Modified Time 09/16/2024 [id number] Patient presente d to office today for their well check Visit. Education was provided on healthy nutrition, including a diet rich in fruits and vegetables, minimizing simple carbohydrates, salt, and saturated fats. Encouraged regular cardiovascular exercise. Emphasized preventive health measures and educated pt/caregiver lifestyle interventions to help reduce health risks and promote healthy living. [email or web address] Not available 09/16/2024 09:56:15 - Informed pt [...] other questions or concerns at this time [email or web address] Not available 09/16/2024 09:59:49 Reason for Referral None Reported. Results Created Date Observation Date Name Description Value Unit Range Abnormal Flag Note LastModifiedBy Organization Detail LastModifiedTime 09/16/19 25 09/16/2024 urina lysis , dipst ick Leukocytes Negati ve Not Available [id number]_zn_z cp [address], [place], [address], 09/16/2024 09:56:35 09/16/19 25 09/16/2024 urina lysis , dipst ick Nitrite negati ve Not Available Izr667_zb_m cp [address], [place], [address], 09/16/2024 09:56:35 09/16/19 25 09/16/2024 urina lysis , dipst ick Urobilinogen .2 Not Available Smg12 1_bp_pcp [address], [place], [address], 09/16/2024 09:56:35 09/16/19 25 09/16/2024 urina lysis , dipst ick Protein Negati ve Not Available Xdm222_rh_z cp [address], [place], [address], 09/16/2024 09:56:35 09/16/19 25 09/16/2024 urina lysis , dipst ick pH 7.5 Not Available Ccs844_dl_ pcp [address], [place], [address], 09/16/2024 09:56:35 09/16/19 25 09/16/2024 urina lysis , dipst ick Blood Negati ve Not Available Vif206_ku_a cp [address], [place], [address], 09/16/2024 09:56:35 09/16/19 25 09/16/2024 urina lysis , dipst ick Specific [place] 1.005 Not Available Dzx854 _bp_pcp [address], [place], [address], 09/16/2024 09:56:35 09/16/19 25 09/16/2024 urina lysis , dipst ick Ketone Negati ve Not Available Maa757_ls_y cp [address], [place], [address], 09/16/2024 09:56:35 09/16/19 25 09/16/2024 urina lysis , dipst ick Bilirubin Negati ve Not Available Eer780_ni_z cp [address], [place], [address], 09/16/2024 09:56:35 09/16/19 25 09/16/2024 urina lysis , dipst ick Glucose Negati ve Not Available Khp742_jc_d cp [address], [place], [address], 09/16/2024 09:56:35 09/16/19 25 09/16/2024 urina lysis , dipst ick Appearance Clear Not Available Smg121_ bp_pcp [address], [place], [address], 09/16/2024 09:56:35 09/16/19 25 09/16/2024 urina lysis , dipst ick Color Yellow Not Available Atg130_lq_ pcp [address], [place], [address], 09/16/2024 09:56:35 Result Notes None recorded. Problems Name Problem SNOMED Code Status Onset Date Resolution Date Notes Provider Name and Address Organization Details Recorded Time Thyroid nodule 629628632 Active 2011 Thyroid nodule; CCG2Jllp ription: Thyroid nodule; CZG70Anw cription : Thyroid nodule; NPI: [id number] 84; Not Available [facility] 5 09:46:16 Anxiety 19655157 Active 2022 Anxiety; FYH2Pvfl ription: Anxiety; OQE65Ojh cription : Anxiety; NPI: [id number] 84; Not Available [facility] 5 09:46:16 Moderate recurrent major depression 29384569 Active 2024 Emily Archibald DNP, PARI MUTUAL TICKET CHECKER [address] [place], [address] , [facility] 5 09:46:53 Generalized anxiety disorder 87792945 Active 2024 Emily Archibald DNP, PARI MUTUAL TICKET CHECKER [address], [place], [address] , [facility] 5 09:46:59 Problem Notes None recorded. [...] DateTime 5 172.699 68 cm 25.1 kg/m2 33104.3 8 g 72 /min 96 % 96 % 96.3 [degF] 110 mm[Hg] 68 mm[Hg] [facility] 5 09:30:25 Social History Question Answer Notes LastModified by Organizat ion Details LastModified Time Tobacco Smoking Status Never Smoker [facility] 09/16/2024 09:32:18 What Is Your Level Of Alcohol Consumption? None Information not available 09/16/2024 Do You Use Protection Against STDs? No Information not available 09/16/2024 What Is Your Relationship Status? [email or web address] Information not available 09/16/2024 Are You Sexually Active? Yes Information not available 09/16/2024 Do You Use Any Illicit Or Recreational Drugs? No [email or web address] Information not available 09/16/2024 Do You Or Have You Ever Used Any Other Forms Of Tobacco Or Nicotine? No Information not available 09/16/2024 Sex: Unknown Functional Status None recorded. Mental Status None recorded. Family History Relationship Description Onset Age of this Age Resolved Age Notes LastModified by Organization Details LastModified Time Father No current problems or disability [email or web address] Not available 09/16 09:31:53 Mother No current problems or disability Not available 09/16 09:31:53 Brother Problem No [...] SNOMED-CT Code Diagnosis ICD10 Code Diagnosis Note [id number] Emily Archibald DNP, PARI MUTUAL TICKET CHECKER [id number] _PCP [address] [place] [address] 09/16/2024 09:17:40 09/16/2024 10:01:35 Active or passive immunization 118468566 Z23 Adult heal th examination 227559735 Z00.00 Moderate r ecurrent major depression 92364262 F33.1 Health Concerns Section Related Observation LastModified by Organization Detai ls LastModified Time None Recorded Concern Status LastModified by Organization Details LastModified Time None Recorded Advance Directives Directive None Recorded Payers Encounter Date Sequence Insurance Name Policy Number Policy Weston Covered Member ID Weston Member ID Guarantor Name 09/16/2024 1 [place] [facility] [id number] Rudy Ortiz [id number] 18 Rudy Ortiz Notes Date Note Type [...] the medication is working well. [facility]. No other specialists seen routinely. No other questions or concerns at this time. Emily Archibald DNP, PARI MUTUAL TICKET CHECKER [address], [place], [address], [place] [facility] 10/03/2024 09:54:04
== END 2024-11-09 10:06 | disposition home or self-care (01) ==
LOC: HO.HOS 09:08
PROVIDERS: PCP Nurse Practitioner; Visit Provider Orthopaedic Surgery
DX: S62.632B Displaced fracture of distal phalanx of right middle finger, initial encounter for open fracture (principal); S62.630A Displaced fracture of distal phalanx of right index finger, initial encounter for closed fracture; R20.0 Anesthesia of skin; S67.21XA Crushing injury of right hand, initial encounter
CPT/HCPCS: 99024

== ENCOUNTER → 2024-11-09 09:12 | Outpatient (BNV) | payer OTHER, BC, SELFPAY | PROVIDERS: Visit Provider Radiology Diagnostic Radiology | DX: M79.641 Pain in right hand (principal) | CPT/HCPCS: 73130 ==

== ENCOUNTER 2024-11-16 10:45 | Outpatient (AMB) | payer OTHER, SELFPAY ==
[2024-11-16 10:57] VITALS: BMI 24.3
--- NOTE | 2024-11-16 10:57 | MHC.OFFVIS ---
Vital Signs 11/16/24 10:57 Height 5 ft 8 in Weight 160 lb BMI 24.3 Intake Visit Reasons: OV-F/C RT IF&MF crush w/c injury 10/24/24 Intake Note: Rudy is a 34 year old right hand dominant male who presents today for a follow up and wound check for his crushing injury of right hand and finger, DOI: 10/24/24. States he has numbness on his middle finger, states its feels funny. Allergies No Known Allergies Allergy (Verified 11/16/24 11:07) HPI HPI OV-F/C RT IF&MF crush w/c injury 10/24/24: Details: Rudy is a 34 year old right hand dominant man, here with his , for his right index & middle finger crush injury, DOI: 10/24/24. This occurred at work while attempting to attach a trailer to a truck. This is a work related injury. 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 He is here for a wound check. Says his fingers are starting to feel little better. He continues to perform daily dressing changes. He has completed his Abx as instructed, and denies any symptoms of infection. He says he has a Hx of a right index finger tendon laceration repair done at 16. He says he does not have full ROM of his index finger following this surgery. 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 Review of Systems Const All systems reviewed & are unremarkable except as noted in HPI and below Physical Exam Vital Signs: BMI result Body Mass Index 24.3 Const General: no acute distress and alert Orientation/consciousness: patient oriented x3 Neuro General: patient oriented x3 Extrem Other: Evaluation of Right Upper Extremity: The patient is alert, oriented, and in no acute distress Neuro: Median, Ulnar, Radial nerves motor and sensory intact and sensation is normal to the tips of all digits, except for numbness to the middle finger radial digital nerve distribution distal to the laceration, normal sensation to the ulnar digital nerve distribution. Vascular: Cap refill brisk ROM: He can bring all his fingers closed to a weak fist and back into full extension He is seen wearing a volar splint, holding the middle & distal phalanxes of his index figner in extension, allowing for PIP joint ROM There is a small area of granulation tissue over the wound on the dorsal aspect of the middle finger, measuring ~4mm*2mm in size The wound over the middle phalanx is almost entirely sealed over All other wounds completely sealed over No evidence of infection Remaining sutures removed today in clinic Still has swelling to the middle finger, improved from prior Resolved swelling in the index finger. Subungual hematoma right index finger Radiographs: 3 views of the right hand from 11/09/24 were reviewed by me today in clinic. They show an index finger oblique distal phalanx fracture, minimally displaced, and a middle finger distal phalanx tuft fracture, involving the radial side of the tuft, minimally displaced Psych Appearance: grossly normal Affect: normal affect Attitude: cooperative Assessment & Plan Assessment & Plan (1) Open fracture of distal phalanx of right middle finger: Code(s): S62.632B - Displaced fracture of distal phalanx of right middle finger, initial encounter for open fracture Category: Medical (2) Fracture of distal phalanx of right index finger: Code(s): S62.630A - Displaced fracture of distal phalanx of right index finger, initial encounter for closed fracture Category: Medical (3) Numbness of right hand: Code(s): R20.0 - Anesthesia of skin Category: Medical (4) Crushing injury of right hand and finger: Code(s): S67.21XA - Crushing injury of right hand, initial encounter Category: Medical Plan Assessment & Plan: 1. Right middle finger distal phalanx radial tuft fracture, open From a crush injury at work, DOI: 10/24/24 Seen in ED & sutured: 10/24/24 2. Right middle finger complex laceration and radial digital nerve numbness, S/P crush injury 3. Right index finger distal phalanx fracture, oblique, closed From a crush injury at work, DOI: 10/24/24 These are work related injuries I educated him and his about this condition I discussed treatment options They've been managed non-operatively, and appear to be healing well. He will continue to wear his index & middle finger spica splint, allowing for PIP joint ROM, for the next 2 weeks. I explained the signs and symptoms of infection, if the patient develops any new or worsening erythema, drainage, pain, or warmth they should contact the clinic or attend the ED. 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 He was given a note for work to remain out of work for the next 2 weeks. I explained he will likely be out of work for 4-8 weeks total, post-injury Some of the sutures were removed today from the middle finger He will follow up in 2 weeks with X-rays, 3V R hand, OOP Scribed for Joann Grajeda MD by Bhavesh Rice, medical art therapist, on 11/16/24 at 11:15 AM, EST. Coding Level of Care Code Global (88261) Diagnoses Open fracture of distal phalanx of right middle finger S62.632B Fracture of distal phalanx of right index finger S62.630A Numbness of right hand R20.0 Crushing injury of right hand and finger S67.21XA
--- OUTSIDE RECORDS SUMMARY | 2024-11-16 12:49 | XMS_ITS | Clinical Summary ---
Author Organization [facility] [place] [address] Phone Care Team Providers Care Research Asst Name Role Phone Emily Archibald NP Primary Care Provider [phone] Medical History Medical History Date Comments Anxiety [...] age to complete this topic Care Teams Research Asst Relationship Specialty Start Date End Date Emily Archibald NP [address] [place] [place] [address] PCP - General Pediatrics 10/05/20
--- OUTSIDE RECORDS SUMMARY | 2024-11-16 12:49 | XMS_ITS | Encounter Summary ---
Author Organization [facility] Address [address] [place] [address] Care Team Providers Care Premix Concrete Batcher Name Role Phone Emily Archibald DRAW FIRE OPERATOR Primary Care Provider [phone] Encounter Details Date Type Department Care Team (Late st Contact Info) Description 05/11/2024 3:31 PM EDT Hospital Encounter TH HISTORIC ENCOUNTERS EASTERN CONVERSION ONLY Emily Archibald, DRAW FIRE OPERATOR [address] [place] [address] Social History Tobacco Use Types Packs/Day Years [...] the viibryd at this time. Pt sees [facility] therapy weekly and he spoke with a hazardous waste management specialist there in that office, and she [...] out of 100 with a therapist at [facility] and he was told he could do the path of stimulants or continue down the path that he is on now and add something like a wellbutrin. Pt is unsure if he wants [facility] to take over his medications at this time or if he wants to continue with us handling his medications. Pt does have a follow up in May with [facility] to see if his medicationsover the next 6 weeks are keeping him in a good place or if he feels he needs to take different steps with [facility] and have them take over his medications. [...] the viibryd at this time. Pt sees [facility] therapy weekly and he spoke with a hazardous waste management specialist there in that office, and she [...] out of 100 with a therapist at [facility] and he was told he could do the path of stimulants or continue down the path that he is on now and add something like a wellbutrin. Pt is unsure if he wants [facility] to take over his medications at this time or if he wants to continue with us handling his medications. Pt [facility] his medications over the next 6 weeks are keeping him in a good place or if he feels he needs to take different steps with [facility] and have them take over his medications. [...] in visit on 07/22/23 POCT Influenza A/B (47011 X2 w/ Mod 59) Result Value Ref [...] on filedocumented in this encounter Care Teams Premix Concrete Batcher Relationship Specialty Start Date End Date Emily Archibald NP [address] [place] [address] PCP - General Pediatrics 10/05/20 documented as of this encounter
--- OUTSIDE RECORDS SUMMARY | 2024-11-16 12:49 | XMS_ITS | Clinical Summary ---
Author Organization [facility] Address [address] [place], [place] [id number] Care Team Providers Care Spring Crater Name Role Phone Emily Archibald CARRIE Primary [...] often do you attend chur ch or anabaptism services? More than 4 times per year 03/07/2022 Do you belong to any clubs o r organizations such as zoroastrianism groups, unions, fraternal or athletic groups, or [...] place to sleep or slept in a senior living (including now)? No 03/07/2022 Sex and Gender [...] age to complete this topic Care Teams Spring Crater Relationship Specialty Start Date End Date Emily Archibald APRN PCP - General Pediatrics 10/05/20
--- OUTSIDE RECORDS SUMMARY | 2024-11-16 12:49 | XMS_ITS | Clinical Summary ---
Author Organization [facility] Address [address] [place] [address] Care Team Providers Care Corporate Travel Counselor Name Role Phone Unavailable Primary Care Provider [...]
== END 2024-11-16 11:27 | disposition home or self-care (01) ==
LOC: HO.HOS 10:46
PROVIDERS: PCP Nurse Practitioner; Visit Provider Orthopaedic Surgery
DX: S62.632B Displaced fracture of distal phalanx of right middle finger, initial encounter for open fracture (principal); S62.630A Displaced fracture of distal phalanx of right index finger, initial encounter for closed fracture; R20.0 Anesthesia of skin; S67.21XA Crushing injury of right hand, initial encounter
CPT/HCPCS: 99024

== ENCOUNTER → 2024-11-16 10:45 | Outpatient (BNVA) | payer OTHER, BC, SELFPAY | PROVIDERS: PCP Nurse Practitioner; Visit Provider Orthopaedic Surgery | DX: S62.630D Displaced fracture of distal phalanx of right index finger, subsequent encounter for fracture with routine healing (principal); S67.21XD Crushing injury of right hand, subsequent encounter; R20.0 Anesthesia of skin | CPT/HCPCS: 99212 ==

== ENCOUNTER 2024-11-30 09:28 | Outpatient (REF) | payer OTHER, BC, SELFPAY ==
--- NOTE | ~2024-11-30 | XR_ITS ---
CLINICAL HISTORY: M79.641 - Pain in right hand 2 view right hand with 1 view 2nd digit/index finger and 1 view 3rd digit/middle finger Comparison: DX/MS/SR - XR HAND RT MIN 3V - 11/09/24 09:12 EDT CR/SR - XR HAND RT MIN 3V - 10/24/24 09:11 EDT Findings: Irregular oblique fracture in the mid to distal aspects of the 2nd distal phalanx. There is a 1.3 mm gap between the fracture fragments which demonstrate increased sclerosis. No endosteal or periosteal sclerosis. Oblique fracture of the distal tip of the 3rd distal phalanx. There is a 0.8 mm gap between the fracture fragments which demonstrate increased sclerosis. No endosteal or periosteal sclerosis. No dislocation. No significant arthritic change. No erosions. No radiopaque foreign body. IMPRESSION: 1. 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 This document has been electronically signed by: Zora Cannon DO on 11/30/2024 18:45:35
== END 2024-11-30 09:29 | disposition home or self-care (01) ==
LOC: HO.HOSX 09:28
PROVIDERS: PCP Nurse Practitioner; Visit Provider Orthopaedic Surgery
DX: M79.641 Pain in right hand (principal); S62.632B Displaced fracture of distal phalanx of right middle finger, initial encounter for open fracture; S62.630A Displaced fracture of distal phalanx of right index finger, initial encounter for closed fracture; R20.0 Anesthesia of skin; S67.21XA Crushing injury of right hand, initial encounter
CPT/HCPCS: 73130; 99212

== ENCOUNTER 2024-11-30 09:28 | Outpatient (AMB) | payer OTHER, BC, SELFPAY ==
--- NOTE | 2024-11-30 09:29 | A.OFFVIS_ITS ---
Intake Visit Reasons: W/C-F/C RT IF&MF crush injury 10/24/24 Intake Note: Rudy is a 34 year old right hand dominant male who presents today for a follow up and wound check for his crushing injury of right hand and finger, DOI: 10/24/24. At patients last visit some of the sutures were removed from the middle finger, he will follow up in 2 weeks with X-rays. He will remain out of work for the next 2 weeks. Today patient reports he is doing a little better. However he is still having pain in his middle finger and would like to know how his index finger is heal. Allergies No Known Allergies Allergy (Verified 11/30/24 09:34) HPI HPI W/C-F/C RT IF&MF crush injury 10/24/24: Details: Rudy is a 34 year old right hand dominant man, here with his , for his right index & middle finger crush injury, DOI: 10/24/24. This occurred at work while attempting to attach a trailer to a truck. This is a work related injury. 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 He is here for a wound check. He says his fingers are starting to feel little better. He continues to have some pain in his fingers, worse to the tip of his index finger with pressure. His sensation is still not normal. He says he has a Hx of a right index finger tendon laceration repair done at 16. He says he does not have full ROM of his index finger following this surgery. 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 Vascular: Cap refill brisk ROM: He can bring all his fingers closed to a fist and back into full extension He has some pain across the tip of his index finger particularly when putting weight across the finger. He does have some tenderness at the fracture site. His middle finger is still swollen, though somewhat improved from prior Still no clear fingernail coming out for the eponychial fold All wounds completely healed No evidence of infection Radiographs: 3 views of the right hand were taken and viewed by me today in clinic. They show an index finger oblique distal phalanx fracture, minimally displaced, and a middle finger distal phalanx tuft fracture, involving the radial side of the tuft, minimally displaced with satisfactory fracture alignment, possibly some evidence of interval bony healing in the index finger, though this may be t urning into a delayed union. The middle finger shows not much evidence of interval bony healing, and may be in the process of forming a fibrous non-union Psych Appearance: grossly normal Affect: normal affect Attitude: cooperative Assessment & Plan Assessment & Plan (1) Open fracture of distal phalanx of right middle finger: Code(s): S62.632B - Displaced fracture of distal phalanx of right middle finger, initial encounter for open fracture Category: Medical (2) Fracture of distal phalanx of right index finger: Code(s): S62.630A - Displaced fracture of distal phalanx of right index finger, initial encounter for closed fracture Category: Medical (3) Numbness of right hand: Code(s): R20.0 - Anesthesia of skin Category: Medical (4) Crushing injury of right hand and finger: Code(s): S67.21XA - Crushing injury of right hand, initial encounter Category: Medical Plan Assessment & Plan: 1. Right middle finger distal phalanx radial tuft fracture, open From a crush injury at work, DOI: 10/24/24 Seen in ED & sutured: 10/24/24 2. Right middle finger complex laceration and radial digital nerve numbness, S/P crush injury 3. Right index finger distal phalanx fracture, oblique, closed From a crush injury at work, DOI: 10/24/24 These are work related injuries I educated him and his about this condition They've been managed non-operatively, and appear to be healing well. Because he is feeling like he is having an increased problem with pain at the index finger distal phalanx with pressure, we are going to move to essentially 247 splinting across the D IP joint to the tip of the finger. 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 He was given a note for work to remain out of work for the next 4 weeks He will follow up in 4 weeks with X-rays, 3V R hand, OOP. At that time we will re-evaluate and either release him to full duty, or light duty and let his work & workers comp sort his duties out appropriately. Please note that greater than 30 minutes was spent with this patient going over the history, evaluating the patient and radiographs, formulating possible treatment options, discussing them with the patient, and documenting the visit. Scribed for Joann Grajeda MD by Bhavesh Rice, medical unit secretary, on 11/30/24 at 9:40 AM, EST. Orders: Orders XR hand RT min 3V Today M79.641 - Pain in right hand Coding Level of Care Code Global (34137) Diagnoses Open fracture of distal phalanx of right middle finger S62.632B Fracture of distal phalanx of right index finger S62.630A Numbness of right hand R20.0 Crushing injury of right hand and finger S67.21XA
--- OUTSIDE RECORDS SUMMARY | 2024-11-30 10:14 | XMS_ITS | Encounter Summary ---
Author Organization [facility] Address [address] [place] [address] Care Team Providers Care Assembly Line Leader Name Role Phone Emily Archibald MAIL HANDLERS SUPERVISOR Primary Care Provider [phone] Encounter Details Date Type Department Care Team (Late st Contact Info) Description 05/11/2024 3:31 PM EDT Hospital Encounter TH HISTORIC ENCOUNTERS EASTERN CONVERSION ONLY Emily Archibald, MAIL HANDLERS SUPERVISOR [address] [place] [address] Social History Tobacco Use Types Packs/Day Years [...] the viibryd at this time. Pt sees [facility] therapy weekly and he spoke with a family development extension specialist there in that office, and she [...] out of 100 with a therapist at [facility] and he was told he could do the path of stimulants or continue down the path that he is on now and add something like a wellbutrin. Pt is unsure if he wants [facility] to take over his medications at this time or if he wants to continue with us handling his medications. Pt does have a follow up in May with [facility] to see if his medicationsover the next 6 weeks are keeping him in a good place or if he feels he needs to take different steps with [facility] and have them take over his [...] the viibryd at this time. Pt sees [facility] therapy weekly and he spoke with a family development extension specialist there in that office, and she [...] out of 100 with a therapist at [facility] and he was told he could do the path of stimulants or continue down the path that he is on now and add something like a wellbutrin. Pt is unsure if he wants [facility] to take over his medications at this time or if he wants to continue with us handling his medications. Pt [facility] his medications over the next 6 weeks are keeping him in a good place or if he feels he needs to take different steps with [facility] and have them take over his [...] in visit on 07/22/23 POCT Influenza A/B (19422 X2 w/ Mod 59) Result Value Ref [...] on filedocumented in this encounter Care Teams Assembly Line Leader Relationship Specialty Start Date End Date Emily Archibald NP [address] [place] [address] PCP - General Pediatrics 10/05/20 documented as of this encounter
--- OUTSIDE RECORDS SUMMARY | 2024-11-30 10:14 | XMS_ITS | Clinical Summary ---
Author Organization [facility] [place] [address] Phone Care Team Providers Care Swing Ride Operator Name Role Phone Emily Archibald NP Primary Care Provider [phone] Medical History Medical History Date Comments Anxiety [...] age to complete this topic Care Teams Swing Ride Operator Relationship Specialty Start Date End Date Emily Archibald NP [address] [place] [address] PCP - General Pediatrics 10/05/20
--- OUTSIDE RECORDS SUMMARY | 2024-11-30 10:15 | XMS_ITS | Clinical Summary ---
Author Organization [facility] Address [address] [address] Phone Care Team Providers Care Engineering Program Analyst Name Role Phone Shaun Edwards MD Primary Care Provider [phone] Allergies No known active allergies Medications Medication [...] HIV ONE-TIME SCREENING (18-6 5 YEARS) 01/10/2006 COVID-19 VACCINE (2023-2 5 season) 2024 Adult [...] Medical Devices Not on file Care Teams Engineering Program Analyst Relationship Specialty Start Date End Date Shaun Edwards MD PCP - General 01/24/14 Additional Source Comments The information contained in this document represents components of the legal health record. It is not the complete legal health record.[facility]
--- OUTSIDE RECORDS SUMMARY | 2024-11-30 10:15 | XMS_ITS | Encounter Summary ---
Author Organization [facility] Address [address] [facility] [address] [place] [address] Phone Care Team Providers Care Health/Safety Job Titles Name Role Phone Shaun Edwards MD Primary Care Provider [phone] Encounter Details Date Type Department Care Team ([facility] st Contact Info) Description 05/30/2024 Ophth Exam [facility] [address] [place] [address] Justin Gibbs MD [address] [place] [address] [email or web address] Social History Tobacco Use Types Packs/Day Years [...] on filedocumented in this encounter Care Teams Health/Safety Job Titles Relationship Specialty Start Date End Date Shaun Edwards MD PCP - General 01/24/14 documented as of this encounter Additional Source Comments The information contained in this document represents components of the legal health record. It is not the complete legal health record.[facility]
--- OUTSIDE RECORDS SUMMARY | 2024-11-30 10:15 | XMS_ITS | Clinical Summary ---
Author Organization [facility] Address [address] [place] [address] Care Team Providers Care Rental Sales Associate Name Role Phone Unavailable Primary Care Provider [...] COVID-19 Vaccine (2023-2 5 season) 2024 Influenza (Season Ended) 2025 Zoster (Shingrix) (1 of 2) 01/10/2038 HPV [...]
--- OUTSIDE RECORDS SUMMARY | 2024-11-30 10:15 | XMS_ITS | Clinical Summary ---
Author Organization [facility] Address [address] [place], [place] [id number] Care Team Providers Care Machine Brush Maker Name Role Phone Emily Archibald CARRIE Primary Care Provider [phone] Allergies No known active allergies Medications No [...] often do you attend chur ch or hindu services? More than 4 times per year 03/07/2022 Do you belong to any clubs o r organizations such as worship groups, unions, fraternal or athletic groups, or [...] place to sleep or slept in a fci (including now)? No 03/07/2022 Sex and Gender [...] age to complete this topic Care Teams Machine Brush Maker Relationship Specialty Start Date End Date Emily Archibald APRN PCP - General Pediatrics 10/05/20
== END 2024-11-30 09:54 | disposition home or self-care (01) ==
LOC: HO.HOS 09:28
PROVIDERS: PCP Nurse Practitioner; Visit Provider Orthopaedic Surgery
DX: S62.632B Displaced fracture of distal phalanx of right middle finger, initial encounter for open fracture (principal); S62.630A Displaced fracture of distal phalanx of right index finger, initial encounter for closed fracture; R20.0 Anesthesia of skin; S67.21XA Crushing injury of right hand, initial encounter
CPT/HCPCS: 99024

== ENCOUNTER → 2024-11-30 09:32 | Outpatient (BNV) | payer OTHER, BC, SELFPAY | PROVIDERS: PCP Nurse Practitioner; Visit Provider Radiology Diagnostic Radiology | DX: M79.641 Pain in right hand (principal) | CPT/HCPCS: 73130 ==

== ENCOUNTER 2024-12-28 09:20 | Outpatient (AMB) | payer OTHER, SELFPAY ==
[2024-12-28 09:30] VITALS: BMI 24.3
--- NOTE | 2024-12-28 09:30 | MHC.OFFVIS ---
Vital Signs 12/28/24 09:30 Height 5 ft 8 in Weight 160 lb BMI 24.3 Intake Visit Reasons: W/C-F/C RT IF&MF crush injury 10/24/24 Intake Note: Rudy is a 34 year old right hand dominant male who presents today for a follow up and wound check for his crushing injury of right hand and finger, DOI: 10/24/24. 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 States he is no longer using his splint in his index finger, reports weird feeling at DIP of his index finger. Patient is also here to update work status. Allergies No Known Allergies Allergy (Verified 12/28/24 09:37) HPI HPI W/C-F/C RT IF&MF crush injury 10/24/24: Details: Rudy is a 34 year old right hand dominant man, here with his , for his right index & middle finger crush injury, DOI: 10/24/24. This occurred at work while attempting to attach a trailer to a truck. This is a work related injury. 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 He says his fingers are starting to feel little better, but he now has a weird feeling at the tip of his index finger. His sensation is still not normal. He continues to have some pain in his fingers, worse to the tip of his index finger with pressure. He has been splinting his fingers with a piece of wood 16/02, and only discontinued the past thursday. He says he has a Hx of a right index finger tendon laceration repair done at 16. He says he does not have full ROM of his index finger following this surgery. 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 Vascular: Cap refill brisk ROM: He can bring all his fingers closed to a fist and back into full extension He has some pain across the tip of his index finger particularly when putting weight across the finger. He does have some tenderness at the fracture site. His middle finger swelling has improved He no longer has tenderness at this fracture site. We may be starting to see some fingernail coming out from under the eponychial fold All wounds completely healed No evidence of infection Radiographs: 3 views of the right hand were taken and viewed by me today in clinic. They show an index finger oblique distal phalanx fracture, minimally displaced, and a middle finger distal phalanx tuft fracture, involving the radial side of the tuft, minimally displaced with satisfactory fracture alignment, possibly some evidence of interval bony healing in the index finger, though this may be turning into a delayed union. The middle finger is healing well & shows some evidence of interval bony healing & satisfactory fracture alignment Psych Appearance: grossly normal Affect: normal affect Attitude: cooperative Assessment & Plan Assessment & Plan (1) Open fracture of distal phalanx of right middle finger: Code(s): S62.632B - Displaced fracture of distal phalanx of right middle finger, initial encounter for open fracture Category: Medical (2) Fracture of distal phalanx of right index finger: Code(s): S62.630A - Displaced fracture of distal phalanx of right index finger, initial encounter for closed fracture Category: Medical (3) Numbness of right hand: Code(s): R20.0 - Anesthesia of skin Category: Medical (4) Crushing injury of right hand and finger: Code(s): S67.21XA - Crushing injury of right hand, initial encounter Category: Medical Plan Assessment & Plan: 1. Right middle finger distal phalanx radial tuft fracture, open From a crush injury at work, DOI: 10/24/24 Seen in ED & sutured: 10/24/24 This looks like it is going on to heal well. 2. Right middle finger complex laceration and radial digital nerve numbness, S/P crush injury 3. Right index finger distal phalanx fracture, oblique, closed From a crush injury at work, DOI: 10/24/24 I have some concern this visit that he may be developing a delayed union. These are work related injuries I educated him and his about this condition They've been managed non-operatively, and appear to be healing well. I discussed activity modifications. For the next 6 weeks I really want him to try to avoid using his index finger, and specifically putting any force across the tip of the index finger. I am concerned that he has been having some motion of the fracture site that is delaying healing. I am hopeful we can then get enough healing across that fracture site that we can possibly start letting him use it in 6 weeks. I did caution him that he does need to make sure that he maintains range of motion in the MCP and PIP joints. 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 Previously he felt that he could not do any typing, but I told him he can do typing, if he just avoids using his index finger. He was given a note for work to return on light duty, effective 12/29/24, with a 2lb weight limit and no use of his right index finger for the next 6 weeks, this includes basic office work such as computer use. If this is not an option, he is to remain out of work for the next 6 weeks. He will follow up in 6 weeks with X-rays, 3V R hand, OOP. At that time we will re-evaluate and either release him to full duty, or light duty and let his work & workers comp sort his duties out appropriately. Scribed for Joann Grajeda MD by Bhavesh Rice, medical terminologist, on 12/28/24 at 9:40 AM, EST. Orders: Orders XR hand RT min 3V Today M79.641 - Pain in right hand Coding Level of Care Code Global (62510) Diagnoses Open fracture of distal phalanx of right middle finger S62.632B Fracture of distal phalanx of right index finger S62.630A Numbness of right hand R20.0 Crushing injury of right hand and finger S67.21XA
--- OUTSIDE RECORDS SUMMARY | 2024-12-28 09:43 | XMS_ITS | Encounter Summary ---
Author Organization [facility] Address [address] [place] [address] Care Team Providers Care Qualified Craft Worker Electrician Name Role Phone Emily Archibald FLUSH TESTER Primary Care Provider [phone] Encounter Details Date Type Department Care Team (Late st Contact Info) Description 05/11/2024 3:31 PM EDT Hospital Encounter TH HISTORIC ENCOUNTERS EASTERN CONVERSION ONLY Emily Archibald, FLUSH TESTER [address] [place] [address] Social History Tobacco Use Types Packs/Day Years [...] viibryd at this time. Pt sees [facility] therapy weekly and he spoke with a customer specialist there in that office, and she [...] out of 100 with a therapist at [facility] and he was told he could do the path of stimulants or continue down the path that he is on now and add something like a wellbutrin. Pt is unsure if he wants [facility] to take over his medications at this time or if he wants to continue with us handling his medications. Pt does have a follow up in May with [facility] to see if his medicationsover the next 6 weeks are keeping him in a good place or if he feels he needs to take different steps with [facility] and have them take over his medications. [...] viibryd at this time. Pt sees [facility] therapy weekly and he spoke with a customer specialist there in that office, and she [...] out of 100 with a therapist at [facility] and he was told he could do the path of stimulants or continue down the path that he is on now and add something like a wellbutrin. Pt is unsure if he wants [facility] to take over his medications at this time or if he wants to continue with us handling his medications. Pt does have a follow [facility] in [facility] to[facility] if his medications over the next 6 weeks are keeping him in a good place or if he feels he needs to take different steps with [facility] and have them take over his medications. [...] in visit on 07/22/23 POCT Influenza A/B (04004 X2 w/ Mod 59) Result Value Ref [...] on filedocumented in this encounter Care Teams Qualified Craft Worker Electrician Relationship Specialty Start Date End Date Emily Archibald NP [address] [place] [address] PCP - General Pediatrics 10/05/20 documented as of this encounter
== END 2024-12-28 10:00 | disposition home or self-care (01) ==
LOC: HO.HOS 09:21
PROVIDERS: PCP Nurse Practitioner; Visit Provider Orthopaedic Surgery
DX: S62.632B Displaced fracture of distal phalanx of right middle finger, initial encounter for open fracture (principal); S62.630A Displaced fracture of distal phalanx of right index finger, initial encounter for closed fracture; R20.0 Anesthesia of skin; S67.21XA Crushing injury of right hand, initial encounter
CPT/HCPCS: 99024

== ENCOUNTER → 2024-12-28 09:23 | Outpatient (BNV) | payer OTHER, SELFPAY | PROVIDERS: Visit Provider Radiology Diagnostic Radiology | DX: M79.641 Pain in right hand (principal) | CPT/HCPCS: 73130 ==

== ENCOUNTER 2024-12-28 09:25 | Outpatient (REF) | payer OTHER, BC, SELFPAY ==
--- NOTE | ~2024-12-28 | XR_ITS ---
CLINICAL HISTORY: M79.641 - Pain in right hand 3 view right hand Comparison: DX/[place] - XR HAND RT MIN 3V - 11/30/24 09:32 EDT DX/[place] - XR HAND RT MIN 3V - 11/09/24 09:12 EDT Findings: Nonunited fracture in the distal phalanx of the 2nd digit demonstrates mild sclerosis of the fracture margins. There is no significant displacement. There are similar findings in the 3rd distal phalanx with minimal displacement. No acute fracture or dislocation. No significant loss of joint space or osteophytes. No erosions. No radiopaque foreign body. IMPRESSION: Mildly progressive healing changes involve the nonunited fractures in the distal phalanges of the 2nd and 3rd digits. This document has been electronically signed by: Zora Cannon DO on 12/28/2024 14:25:46
--- OUTSIDE RECORDS SUMMARY | 2024-12-29 10:18 | XMS_ITS | Encounter Summary ---
Author Organization [facility] Address [address] [place] [address] Care Team Providers Care Screen Tender Helper Name Role Phone Emily Archibald GEOTHERMAL OPERATING ENGINEER Primary Care Provider [phone] Encounter Details Date Type Department Care Team (Late st Contact Info) Description 05/11/2024 3:31 PM EDT Hospital Encounter TH HISTORIC ENCOUNTERS EASTERN CONVERSION ONLY Emily Archibald, GEOTHERMAL OPERATING ENGINEER [address] [place] [address] Social History Tobacco Use Types Packs/Day Years [...] the viibryd at this time. Pt sees [facility] therapy weekly and he spoke with a production control specialist there in that office, and she [...] of 100 with a therapist at [facility] and he was told he could do the path of stimulants or continue down the path that he is on now and add something like a wellbutrin. Pt is unsure if he wants [facility] to take over his medications at this time or if he wants to continue with us handling his medications. Pt does have a follow up in May with [facility] to see if his medicationsover the next 6 weeks are keeping him in a good place or if he feels he needs to take different steps with [facility] and have them take over his medications. [...] the viibryd at this time. Pt sees [facility] therapy weekly and he spoke with a production control specialist there in that office, and she [...] of 100 with a therapist at [facility] and he was told he could do the path of stimulants or continue down the path that he is on now and add something like a wellbutrin. Pt is unsure if he wants [facility] to take over his medications at this time or if he wants to continue with us handling his medications. Pt does have a follow [facility] in May [facility] if his medications over the next 6 weeks are keeping him in a good place or if he feels he needs to take different steps with [facility] and have them take over his medications. [...] in visit on 07/22/23 POCT Influenza A/B (14026 X2 w/ Mod 59) Result Value Ref [...] on filedocumented in this encounter Care Teams Screen Tender Helper Relationship Specialty Start Date End Date Emily Archibald NP [address] [place] [address] PCP - General Pediatrics 10/05/20 documented as of this encounter
== END 2024-12-28 09:26 | disposition home or self-care (01) ==
LOC: HO.HOSX 09:25
PROVIDERS: Visit Provider Orthopaedic Surgery
DX: M79.641 Pain in right hand (principal); S62.632B Displaced fracture of distal phalanx of right middle finger, initial encounter for open fracture; S62.630A Displaced fracture of distal phalanx of right index finger, initial encounter for closed fracture; R20.0 Anesthesia of skin; S67.21XA Crushing injury of right hand, initial encounter
CPT/HCPCS: 73130; 99212

== ENCOUNTER 2025-02-08 09:41 | Outpatient (AMB) | payer OTHER, SELFPAY ==
--- OUTSIDE RECORDS SUMMARY | 2024-05-11 15:31 | XMS_ITS | Encounter Summary ---
Author Organization [facility] Address [address] [place] [address] Care Team Providers Care Satellite Communications Engineer Name Role Phone Emily Archibald PHARMACY TECHNICIAN Primary Care Provider [phone] Encounter Details Date Type Department Care Team (Late st Contact Info) Description 05/11/2024 3:31 PM EDT Hospital Encounter TH HISTORIC ENCOUNTERS EASTERN CONVERSION ONLY Emily Archibald, PHARMACY TECHNICIAN [address] [place] [address] Social History Tobacco Use Types Packs/Day Years [...] the viibryd at this time. Pt sees [facility] therapy weekly and he spoke with a center medical specialist there in that office, and she [...] out of 100 with a therapist at [facility] and he was told he could do the path of stimulants or continue down the path that he is on now and add something like a wellbutrin. Pt is unsure if he wants [facility] to take over his medications at this time or if he wants to continue with us handling his medications. Pt does have a follow up in May with [facility] to see if his medicationsover the next 6 weeks are keeping him in a good place or if he feels he needs to take different steps with [facility] and have them take over his medications. [...] the viibryd at this time. Pt sees [facility] therapy weekly and he spoke with a center medical specialist there in that office, and she [...] out of 100 with a therapist at [facility] and he was told he could do the path of stimulants or continue down the path that he is on now and add something like a wellbutrin. Pt is unsure if he wants [facility] to take over his medications at this time or if he wants to continue with us handling his medications. [facility] medications over the next 6 weeks are keeping him in a good place or if he feels he needs to take different steps with [facility] and have them take over his medications. [...] in visit on 07/22/23 POCT Influenza A/B (56362 X2 w/ Mod 59) Result Value Ref [...] on filedocumented in this encounter Care Teams Satellite Communications Engineer Relationship Specialty Start Date End Date Emily Archibald NP [address] [place] [address] PCP - General Pediatrics 10/05/20 documented as of this encounter
--- NOTE | 2025-02-08 09:46 | MHC.OFFVIS ---
Vital Signs 02/08/25 10:09 Height 5 ft 8 in Weight 165 lb BMI 25.1 Handedness Right Intake Visit Reasons: OV-F/C RT IF&MF crush injury 10/24/24-w/xrays Intake Note: Rudy is a 34 year old right hand dominant man, here with his , for his right index & middle finger crush injury, DOI: 10/24/24. This occurred at work while attempting to attach a trailer to a truck. This is a work related injury. 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 Patient reports no pain or discomfort in the fingers. He is experiencing swelling of these two digits daily and extreme stiffness mainly when he wakes up in the morning. He is concerned of his healing. His employment will not let him return to work on light duty. Allergies No Known Allergies Allergy (Verified 02/08/25 10:09) HPI HPI OV-F/C RT IF&MF crush injury 10/24/24-w/xrays: Details: Rudy is a 34 year old right hand dominant man, here with his , for his right index & middle finger crush injury, DOI: 10/24/24. This occurred at work while attempting to attach a trailer to a truck. This is a work related injury. 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 Patient reports no pain or discomfort in the fingers. He is experiencing swelling of these two digits daily and mild stiffness mainly when he wakes up in the morning. He is concerned of his healing. His employment will not let him return to work on light duty. Patient inquires if he can return to work full duty today. 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 Vascular: Cap refill brisk ROM: He can bring all his fingers closed to a fist and back into full extension He has some pain across the tip of his index finger particularly when putting weight across the finger. He does have some tenderness at the fracture site. His middle finger swelling has improved He no longer has tenderness at this fracture site. We may be starting to see some fingernail coming out from under the eponychial fold All wounds completely healed No evidence of infection Radiographs: 3 views of the right hand were taken and viewed by me today in clinic. They show an index finger oblique distal phalanx fracture, minimally displaced, and a middle finger distal phalanx tuft fracture, involving the radial side of the tuft, minimally displaced with satisfactory fracture alignment, some evidence of interval bony healing in the index finger. The middle finger is healing well & shows some evidence of interval bony healing & satisfactory fracture alignment Psych Appearance: grossly normal Affect: normal affect Attitude: cooperative Assessment & Plan Assessment & Plan (1) Open fracture of distal phalanx of right middle finger: Onset Date: ~10/24/24 Code(s): S62.632B - Displaced fracture of distal phalanx of right middle finger, initial encounter for open fracture Category: Medical (2) Fracture of distal phalanx of right index finger: Onset Date: ~10/24/24 Code(s): S62.630A - Displaced fracture of distal phalanx of right index finger, initial encounter for closed fracture Category: Medical (3) Numbness of right hand: Code(s): R20.0 - Anesthesia of skin Category: Medical (4) Crushing injury of right hand and finger: Onset Date: ~10/24/24 Code(s): S67.21XA - Crushing injury of right hand, initial encounter Category: Medical Plan Assessment & Plan: 1. Right middle finger distal phalanx radial tuft fracture, open From a crush injury at work, DOI: 10/24/24 Seen in ED & sutured: 10/24/24 This looks like it is going on to heal well. 2. Right middle finger complex laceration and radial digital nerve numbness, S/P crush injury 3. Right index finger distal phalanx fracture, oblique, closed From a crush injury at work, DOI: 10/24/24 These are work related injuries I educated him and his about this condition They've been managed non-operatively, and appear to be healing well. As the patient appears to be recovering very well, and there is finally some solid evidence of bony healing, I feel it is safe to return him to work full duty at this time Patient expresses he agrees with this Patient is educated he should call our office for repeat assessment and stop working if he begins to notice consistent increases in pain, redness, swelling Patient states understanding of this and is amenable to this plan Follow-up as needed Scribed for Joann Grajeda MD by Bhavesh Rice, medical i d sales, on 12/28/24 at 9:40 AM, EST. Orders: Orders XR hand RT min 3V 02/08/25 M79.641 - Pain in right hand Coding Level of Care Code Est Pt Level 3 (61674) Diagnoses Open fracture of distal phalanx of right middle finger S62.632B Fracture of distal phalanx of right index finger S62.630A Numbness of right hand R20.0 Crushing injury of right hand and finger S67.21XA
[2025-02-08 10:09] VITALS: BMI 25.1
--- OUTSIDE RECORDS SUMMARY | 2025-02-08 10:17 | XMS_ITS | Clinical Summary ---
Author Organization [facility] Address [address] [place], [place] [id number] Care Team Providers Care Solid Waste Manager Name Role Phone Emily Archibald CARRIE Primary Care Provider [phone] Allergies No known active allergies Medications No [...] often do you attend chur ch or shinto services? More than 4 times per year 03/07/2022 Do you belong to any clubs o r organizations such as methodist groups, unions, fraternal or athletic groups, or [...] place to sleep or slept in a jail (including now)? No 03/07/2022 Sex and Gender [...] 58 05/11/2024 3:41 PM EDT Temperature 35.9 C (96.7 F) 05/11/2024 3:41 PM EDT Respiratory Rate 16 08/30/2021 12:56 PM EST [...] 03/20/2024 03/20/2023, 03/07/2022, 12/01/2020 Influenza Vaccine (#1) 2025 DTap / Tdap / Td Discontinued 10/11/2018 COVID-19 Vaccine Discontinued Hepatitis B Vaccines Discontinued Hepatitis C Screening Discontinued Pneumococcal Vaccine Aged Out No long er eligible based on patient's age to complete this topic RSV Ped < 20 months Aged Out No longe r eligible based on patient's age to complete this topic Care Teams Solid Waste Manager Relationship Specialty Start Date End Date Emily Archibald APRN PCP - General Pediatrics 10/05/20
--- OUTSIDE RECORDS SUMMARY | 2025-02-08 10:17 | XMS_ITS ---
Author Name [facility] Organization Unknown History of Medication Use Medication Directions Dispensed Refills Start Date End Date [facility] escitalopram 20 mg tablet Take 1 tablet every day by oral route for 90 days. 09/16/2024 active escitalopram 10 mg tablet TAKE 1 TABLET BY MOUTH EVERY DAY 06/09/2024 09/16/2024 completed escitalopram (Lexapro) 20 MG tablet Take 1 tablet (20 mg total) by mouth daily. 05/11/2024 08/10/2024 active escitalopram (LEXAPRO) tablet 10 mg Take 1 tablet (10 mg total) by mouth daily. 03/14/2024 06/13/2024 active Viibryd 20 MG TABS tablet Take 1 tablet (20 mg total) by mouth daily. 04/16/2023 11/07/2023 aborted Viibryd 10 mg tablet TAKE 1 TABLET BY MOUTH EVERY DAY 09/16/2024 completed Viibryd 20 mg tablet TAKE 2 TABLETS (40 MG TOTAL) BY MOUTH DAILY. 09/16/2024 completed escitalopram 20 mg tablet active Problems Problem Status Onset Date Problem Type Date of Resolution Source Generalized anxiety disorder active 2024-08-03 [facility] [facility] Anxiety active 2022-10-22 ProblemAct [facility] Moderate recurrent major depression active 2024-08-03 ProblemAct [facility] Thyroid nodule active 2012-01-29 ProblemAct [facility]_ [facility] Anxiety active 2022-10-22 ProblemAct [facility] Major depressive disorder, recurrent episode, moderate active 2022-10-22 ProblemAct [facility] Thyroid nodule active 2012-01-29 ProblemAct [facility] HNEMG Medication management active EncounterDiagnosisAct CTTHNE MG Immunizations Vaccine Date Source Lot Number Status tetanus toxoid, reduced diph theria toxoid, and acellular pertussis vaccine, adsorbed 10/11/2018 [facility] completed Encounters Encounter Type Encounter Reason Primary Diagnosis Location Date Ambulatory [facility] 10/06/2024 Ambulatory [facility] 08/04/2024 [facility] 08/02/2024 [facility] 08/02/2024 Care Team Organization Name Specialty Phone Email Start Date End Da aurora Archibald [employer]; [facility] Primary Care 11/25/2024 Emily Archibald [employer]; POWER TRANSMISSION ENGINEER [facility] Primary Care 08/28/20242024 [facility] 08/06/2024 Emily Archibald [employer]; [facility] 07/01/2022 11/16/2024
--- OUTSIDE RECORDS SUMMARY | 2025-02-08 10:17 | XMS_ITS | Clinical Summary ---
Author Organization [facility] Address [address] [place] [address] Care Team Providers Care Food And Beverage Checker Name Role Phone Unavailable Primary Care Provider [...] Vaccine (2023-2 5 season) 2024 Influenza (#1) 2025 Zoster (Shingrix) (1 of 2) 01/10/2038 [...]
--- OUTSIDE RECORDS SUMMARY | 2025-02-08 10:18 | XMS_ITS | Data Portability ---
Author Organization [place] [facility], autoContract - [facility] Address [address] [place] [address] Assessment No assessment recorded. Plan of Treatment Reminders Order Date Submit Date Provider Last Modified By Organization Details Last Modified Time Details Appointments None recorded. Lab urinalysis, dipstick 2024[facility] [id number] , [address] [place], [address], 12:55:04 Referral None recorded. Procedures None recorded. Surgeries None recorded. Imaging None recorded. Medication Orders escitalopra m 20 mg tablet 2024[id number], [address] [facility], [place], [address], 12:55:04 Patient TargetsNo targets recorded. Patient Instructions Encounter Date Encounter Id Patient Instructions Last Modified By Organization Details Last Modified Time 09/16/2024 [id number] Patient presente d to office today for their well check Visit. Education was provided on healthy nutrition, including a diet rich in fruits and vegetables, minimizing simple carbohydrates, salt, and saturated fats. Encouraged regular cardiovascular exercise. Emphasized preventive health measures and educated pt/caregiver lifestyle interventions to help reduce health risks and promote healthy living. [email or web address] Not available 09/16/2024 09:56:15 - Informed pt [...] other questions or concerns at this time [email or web address] Not available 09/16/2024 09:59:49 Reason for Referral None Reported. Results Created Date Observation Date Name Description Value Unit Range Abnormal Flag Note LastModifiedBy Organization Detail LastModifiedTime 09/16/19 25 09/16/2024 urina lysis , dipst ick Leukocytes Negati ve Not Available [id number] cp [address], [place], [address], 09/16/2024 09:56:35 09/16/19 25 09/16/2024 urina lysis , dipst ick Nitrite negati ve Not Available [id number] cp [address], [place], [address], 09/16/2024 09:56:35 09/16/19 25 09/16/2024 urina lysis , dipst ick Urobilinogen .2 Not Available [id number]_pcp [address], [place], [address], 09/16/2024 09:56:35 09/16/19 25 09/16/2024 urina lysis , dipst ick Protein Negati ve Not Available [id number]_y cp [address], [place], [address], 09/16/2024 09:56:35 09/16/19 25 09/16/2024 urina lysis , dipst ick pH 7.5 Not Available [id number]_ pcp [address], [place], [address], 09/16/2024 09:56:35 09/16/19 25 09/16/2024 urina lysis , dipst ick Blood Negati ve Not Available [id number] cp [address], [place], [address], 09/16/2024 09:56:35 09/16/19 25 09/16/2024 urina lysis , dipst ick Specific [place] 1.005 Not Available [id number] _bp_pcp [address], [place], [address], 09/16/2024 09:56:35 09/16/19 25 09/16/2024 urina lysis , dipst ick Ketone Negati ve Not Available [id number] cp [address], [place], [address], 09/16/2024 09:56:35 09/16/19 25 09/16/2024 urina lysis , dipst ick Bilirubin Negati ve Not Available [id number]_s cp [address], [place], [address], 09/16/2024 09:56:35 09/16/19 25 09/16/2024 urina lysis , dipst ick Glucose Negati ve Not Available [id number] cp [address], [place], [address], 09/16/2024 09:56:35 09/16/19 25 09/16/2024 urina lysis , dipst ick Appearance Clear Not Available [id number]_ bp_pcp [address], [place], [address], 09/16/2024 09:56:35 09/16/19 25 09/16/2024 urina lysis , dipst ick Color Yellow Not Available [id number]_ pcp [address], [place], [address], 09/16/2024 09:56:35 Result Notes None recorded. Problems Name Problem SNOMED Code Status Onset Date Resolution Date Notes Provider Name and Address Organization Details Recorded Time Thyroid nodule 370736352 Active 2011 Thyroid nodule; CHC9Glig ription: Thyroid nodule; DYA28Bci cription : Thyroid nodule; NPI: [id number] 84; Not Available [facility] 09:46:16 Anxiety 59721597 Active 2022 Anxiety; PKD2Queg ription: Anxiety; MUS47Njw cription : Anxiety; NPI: [id number] 84; Not Available [facility] 5 09:46:16 Moderate recurrent major depression 29869093 Active 2024 Emily Archibald DNP, [employer] [address], [place], [address] , [facility] 5 09:46:53 Generalized anxiety disorder 75101917 Active 2024 Emily Archibald DNP, [employer] [address], [place], [address] , [facility] 5 09:46:59 Problem Notes None recorded. Medical Equipment None Reported. Allergies No known drug allergies Medications Name Sig Start Date Stop Date Status Note LastModified by Organization Details LastModified Time escitalopram 10 mg tablet TAKE 1 TABLET BY MOUTH EVERY DAY 09/16 completed Not Available Not Available Not Available escitalopram 20 mg tablet Take 1 tablet every day by oral route for 7 days. 2024 active Not Available Not Available Not [...] blood by Pulse oximetry Body temperature Systolic And Diastolic Provider Name and Address Organization Details Last Updated DateTime 5 172.699 68 cm 25.1 kg/m2 75637.3 8 g 72 /min 96 % 96 % 96.3 [degF] 110/68 mm[Hg] [facility] 5 09:30:25 Social History Question Answer Notes LastModified by Organizat ion Details LastModified Time Tobacco Smoking Status Never Smoker [facility] 09/16/2024 09:32:18 Do You Use Protection Against STDs? No Information not available 09/16/2024 What Is Your Relationship Status? [email or web address] Information not available 09/16/2024 Are You Sexually Active? Yes Information not available 09/16/2024 Sex: Unknown Functional Status Question Answer Note LastModified by Organizat ion Details LastModified Time Do you use any illicit or recreational drugs? No Information not available 09/16/2024 Do you or have you ever used any other forms of tobacco or nicotine? No Information not available 09/16/2024 What is your level of alcohol consumption? None [email or web address] Information not available 09/16/2024 Mental Status None recorded. Family History Relationship Description Onset Age of this Age Resolved Age Notes LastModified by Organization Details LastModified Time Father No current problems or disability [email or web address] Not available 09/16 09:31:53 Mother No current problems or disability [email or web address] Not available 09/16 09:31:53 Brother Problem No [...] Hypertension, Stroke Mother: Depression, Hypertension Medical History Condition Response Anxiety Y Thyroid Problems Y Depression Y Immunizations Vaccine Type Date Status Note Provider Nam e and Address Organization Details Recorded Time Tdap 10/11/2018 completed Not Available [facility] 09/08/2024 10:02:07 Past Encounters Encounter ID Performer Location Encounter Start Date Encounter Closed Date Diagnosis/Indication Diagnosis SNOMED-CT Code Diagnosis ICD10 Code Diagnosis Note [id number] Emily Archibald DNP, [employer] [id number] _[id number] [address] [place] [address] 09/16/2024 09:17:40 09/16/2024 10:01:35 Active or passive immunization 464203726 Z23 Adult heal th examination 082696957 Z00.00 Moderate r ecurrent major depression 15391655 F33.1 Health Concerns Section Related Observation LastModified by Organization Detai ls LastModified Time None Recorded Concern Status LastModified by Organization Details LastModified Time None Recorded Advance Directives Directive None Recorded Payers Insurance Date Sequence Insurance Name Policy Number Policy Weston Covered Member ID Weston Member ID Guarantor Name 10/06/2024 1 [facility] [id number] Rudy Ortiz [id number] Rudy Ortiz Notes Date Note Type [...] the medication is working well. Pt sees [facility]. No other specialists seen routinely. No other questions or concerns at this time. Emily Archibald DNP, [employer] [address], [place], [address], [place] [facility] 10/03/2024 09:54:04
== END 2025-02-08 10:32 | disposition home or self-care (01) ==
LOC: HO.HOS 09:41
DX: S62.632B Displaced fracture of distal phalanx of right middle finger, initial encounter for open fracture (principal); S62.630A Displaced fracture of distal phalanx of right index finger, initial encounter for closed fracture; R20.0 Anesthesia of skin; S67.21XA Crushing injury of right hand, initial encounter
CPT/HCPCS: 99213

== ENCOUNTER 2025-02-08 09:41 | Outpatient (REF) | payer OTHER, SELFPAY ==
--- NOTE | ~2025-02-08 | XR_ITS ---
EXAMINATION: XR HAND 3 OR MORE VIEWS RIGHT HISTORY: M79.641 - Pain in right hand COMPARISON: Comparison is made with the prior examination dated 12/28/2024. FINDINGS: Three views of the right hand are submitted. Osseous mineralization is normal. Again seen are fractures of the distal krista of the 2nd and 3rd fingers. These demonstrate corticated margins. The joint spaces are preserved. The soft tissues are unremarkable. XR/XR hand RT min 3V IMPRESSION: Fractures of the distal krista of the 2nd and 3rd fingers without change. Electronically signed by: Andrade Flynn MD 02/08/2025 10:03 AM EDT
== END 2025-02-08 09:42 | disposition home or self-care (01) ==
LOC: HO.HOSX 09:41
DX: S62.632D Displaced fracture of distal phalanx of right middle finger, subsequent encounter for fracture with routine healing (principal); S62.630D Displaced fracture of distal phalanx of right index finger, subsequent encounter for fracture with routine healing; S67.21XD Crushing injury of right hand, subsequent encounter; R20.0 Anesthesia of skin; M79.641 Pain in right hand; W23.0XXD Caught, crushed, jammed, or pinched between moving objects, subsequent encounter; Y92.89 Other specified places as the place of occurrence of the external cause; Y93.89 Activity, other specified; Y99.0 Civilian activity done for income or pay
CPT/HCPCS: 73130; 99212

== ENCOUNTER → 2025-02-08 09:48 | Outpatient (BNV) | payer OTHER, SELFPAY | PROVIDERS: Visit Provider Radiology Diagnostic Radiology | DX: S62.632A Displaced fracture of distal phalanx of right middle finger, initial encounter for closed fracture (principal); S62.620A Displaced fracture of middle phalanx of right index finger, initial encounter for closed fracture | CPT/HCPCS: 73130 ==

== ENCOUNTER 2025-03-15 08:02 | Outpatient (AMB) | payer OTHER, SELFPAY ==
[2025-03-15 08:13] VITALS: BMI 25.1
--- NOTE | 2025-03-15 08:13 | MHC.OFFVIS ---
Vital Signs 03/15/25 08:13 Height 5 ft 8 in Weight 165 lb BMI 25.1 Intake Visit Reasons: OV-RT IF&MF crush injury 10/24/24- requesting xray Intake Note: Rudy is a 35 year old right hand dominant male who presents today status post Right Index Finger Distal Phalanx Fracture & Right Middle Finger Distal Phalanx Fracture, DOI:10/24/24. At their last visit patient and were notified injuries appeared to be recovering well with evidence of bony healing. Patient to follow up as needed. Patient presents today requesting x-rays to make sure it is healing properly. He states numbness and tingling is doing away. He continues having stiffness in the morning. He is not interested in OT. Allergies No Known Allergies Allergy (Verified 03/15/25 08:22) HPI HPI OV-RT IF&MF crush injury 10/24/24- requesting xray: Details: Rudy is a 35 year old right hand dominant male who presents today status post Right Index Finger Distal Phalanx Fracture & Right Middle Finger Distal Phalanx Fracture, WC DOI:10/24/24. At their last visit patient and were notified injuries appeared to be recovering well with evidence of bony healing. Patient to follow up as needed. Patient presents today requesting x-rays to make sure it is healing properly. He states numbness and tingling is doing away. He continues having stiffness in the morning. He is not interested in OT. 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 Vascular: Cap refill brisk ROM: He can bring all his fingers closed to a fist and back into full extension He has some pain across the tip of his index finger particularly when putting weight across the finger. He d has no further tenderness at the fracture site. His middle finger swelling has resolved He no longer has tenderness at this fracture site. All wounds completely healed No evidence of infection Radiographs: 3 views of the right hand were taken and viewed by me today in clinic. They show an index finger oblique distal phalanx fracture, minimally displaced, and a middle finger distal phalanx tuft fracture, involving the radial side of the tuft, minimally displaced with satisfactory fracture alignment, evidence of interval bony healing in the index finger. The middle finger is healing well & shows evidence of interval bony healing & satisfactory fracture alignment Psych Appearance: grossly normal Affect: normal affect Attitude: cooperative Assessment & Plan Assessment & Plan (1) Open fracture of distal phalanx of right middle finger: Onset Date: ~10/24/24 Code(s): S62.632B - Displaced fracture of distal phalanx of right middle finger, initial encounter for open fracture Category: Medical (2) Fracture of distal phalanx of right index finger: Onset Date: ~10/24/24 Code(s): S62.630A - Displaced fracture of distal phalanx of right index finger, initial encounter for closed fracture Category: Medical (3) Numbness of right hand: Code(s): R20.0 - Anesthesia of skin Category: Medical (4) Crushing injury of right hand and finger: Onset Date: ~10/24/24 Code(s): S67.21XA - Crushing injury of right hand, initial encounter Category: Medical Plan Assessment & Plan: 1. Right middle finger distal phalanx radial tuft fracture, open From a crush injury at work, DOI: 10/24/24 Seen in ED & sutured: 10/24/24 This looks like it is going on to heal well. 2. Right middle finger complex laceration and radial digital nerve numbness, S/P crush injury 3. Right index finger distal phalanx fracture, oblique, closed From a crush injury at work, DOI: 10/24/24 These are work related injuries I educated him and his about this condition They've been managed non-operatively, and appear to be healing well. As the patient appears to be recovering very well, and there is finally some solid evidence of bony healing, I feel it is safe to return him to work full duty at this time Patient expresses he agrees with this Patient is educated he should call our office for repeat assessment and stop working if he begins to notice consistent increases in pain, redness, swelling Patient states understanding of this and is amenable to this plan Follow-up as needed Orders: Orders XR hand RT min 3V Today M79.641 - Pain in right hand Coding Level of Care Code Est Pt Level 3 (41071) Diagnoses Open fracture of distal phalanx of right middle finger S62.632B Fracture of distal phalanx of right index finger S62.630A Numbness of right hand R20.0 Crushing injury of right hand and finger S67.21XA
== END 2025-03-15 08:42 | disposition home or self-care (01) ==
LOC: HO.HOS 08:03
DX: S62.632B Displaced fracture of distal phalanx of right middle finger, initial encounter for open fracture (principal); S62.630A Displaced fracture of distal phalanx of right index finger, initial encounter for closed fracture; R20.0 Anesthesia of skin; S67.21XA Crushing injury of right hand, initial encounter
CPT/HCPCS: 99213

== ENCOUNTER 2025-03-15 08:02 | Outpatient (REF) | payer OTHER, SELFPAY ==
--- OUTSIDE RECORDS SUMMARY | 2024-05-11 15:31 | XMS_ITS | Encounter Summary ---
Author Organization [facility] Address [address] [place] [address] Care Team Providers Care Patient Services Technician Name Role Phone Emily Archibald MALTED [employer] MIXER Primary Care Provider [phone] Encounter Details Date Type Department Care Team (Late st Contact Info) Description 05/11/2024 3:31 PM EDT Hospital Encounter TH HISTORIC ENCOUNTERS EASTERN CONVERSION ONLY Emily Archibald, M[employer]ED [employer] MIXER [address] [place] [address] Social History Tobacco Use Types Packs/Day Years Used Date Smoking Tobacco: Never Smokeless Tobacco: Never Alcohol Use Standard Drinks/Week Comments No 0 (1 standard drink = 0.6 oz pur e alcohol) Sex and Gender Information Value Date Recorded Sex Assigned at Not on file Legal Sex Male 5:16 AM EST Gender Identity Not on file Sexual Orientation Not on file documented as of this encounter Last Filed Vital Signs Vital Sign Reading Time Taken Comments Blood Pressure 110/64 05/11/2024 3:41 PM EDT Sitting Left arm Pulse 60 05/11/2024 3:41 PM EDT Temperature - - Respiratory Rate - - Oxygen Saturation - - Inhaled Oxygen Concentration - - Weight 76.3 kg (168 lb 4.8 oz) 05/11/2024 3:41 PM EDT Simultaneous filing. User may not have seen previous data. Height 172.7 cm (5' 8 ) 12/18/2023 11:3 7 AM EDT Body Mass Index 25.59 12/18/2023 11:37 AM EDT documented in this encounter Progress Notes * Historical, Notes Results - 05/11/2024 3:30 PM EDT Pt is here for med check for lexapro 10mg/day. Pt states he increased himself to 20mg/day about 2 weeks into his switch from viibryd to lexapro. Pt states that he feels the 20mg/day was just started to make a difference about a week ago, and he was feeling better on that dose but states that he ranout today which is sooner than expected because of the dose adjustment. Pt states that he does have more fatigue, some headaches as well. Pt is currently completely weaned off of the viibryd at this time. Pt sees [facility] therapy weekly and he spoke with a agronomy specialist there in that office, and she had suggested him taking hte medication at night because of the fatigue he was experiencing and he started to take it at night which does help knock him out, but he also does still experience some insomnia. Pt states she believes he may be having some side effects of decreased libido, is unsure if he is over-thinking that or if he actually is experiencing that. Pt states she has done a lot of research on if he has ADHD or anxiety and states that in all of the testing he has done he scored a 77 out of 100 with a therapist at [facility] and he was told he could do the path of stimulants or continue down the path that he is on now and add something like a wellbutrin. Pt is unsure if he wants [facility] to take over his medications at this time or if he wants to continue with us handling his medications. Pt does have a follow up in May with [facility] to see if his medicationsover the next 6 weeks are keeping him in a good place or if he feels he needs to take different steps with [facility] and have them take over his medications. No other questions or concerns at this time. PHQ9 done. * Emily Archibald NP - 05/11/2024 3:30 PM EDT Med Management CHIEF COMPLAINT: Chief Complaint Patient presents with ??? Medication Management HISTORY OF PRESENT ILLNESS: Rudy Ortiz is a 34 y.o. male who has a past medical history of Anxiety, COVID- 19, Major depressivedisorder, recurrent episode, moderate (HCC) (10/22/2022), Right tennis elbow, and Thyroid nodule (01/29/2012). NURSING NOTE VERIFIED: Pt is here for med check for lexapro 10mg/day. Pt states he increased himself to 20mg/day about 2 weeks into his switch from viibryd to lexapro. Pt states that he feels the 20mg/day was just started to make a difference about a week ago, and he was feeling better on that dosebut states that he ran out today which is sooner than expected because of the dose adjustment. Pt states that he does have more fatigue, some headaches as well. Pt is currently completely weaned off of the viibryd at this time. Pt sees [facility] therapy weekly and he spoke with a agronomy specialist there in that office, and she had suggested him taking hte medication at night because of the fatigue he was experiencing and he started to take it at night which does help knock him out, but he also does still experience some insomnia. Pt states she believes he may be having some side effects ofdecreased libido, is unsure if he is over-thinking that or if he actually is experiencing that. Pt states she has done a lot of research on if he has ADHD or anxiety and states that in all of the testing he has done he scored a 77 out of 100 with a therapist at [facility] and he was told he could do the path of stimulants or continue down the path that he is on now and add something like a wellbutrin. Pt is unsure if he wants [facility] to take over his medications at this time or if he wants to continue with us handling his medications. [facility] his medications over the next 6 weeks are keeping him in a good place or if he feels he needs to take different steps with [facility] and have them take over his medications. ROS Pertinent items are noted in HPI. PATIENT CARE TEAM Patient Care Team: Emily Archibald APRN as PCP - General (Pediatrics) PROBLEM LIST: Patient Active Problem List Diagnosis SNOMED CT(R) ??? Thyroid nodule THYROID NODULE ??? Major depressive disorder, recurrent episode, moderate (HCC) MODERATE RECURRENT MAJOR DEPRESSION ??? Anxiety ANXIETY PMH/ALLERGY/SURGICAL/FAMILY/SOCIAL HISTORY: The following portions of the patient's history were reviewed and updated as appropriate: allergies, current medications, past family history, past medical history, past social history, past surgicalhistory, and problem list. CURRENT MEDICATIONS: reviewed and reconciled by me Current Outpatient Medications Medication Sig Dispense Refill ??? escitalopram (Lexapro) 20 MG tablet Take 1 tablet (20 mg total) by mouth daily. 90 tablet 0 No current facility-administered medications for this visit. VITAL SIGNS/CURRENT IN OFFICE LAB RESULTS Vitals: 05/11/24 1541 BP: 110/64 BP Location: Left arm Patient Position: Sitting Cuff Size: Adult Regular Pulse: 60 Temp: 96.7 ??F (35.9 ??C) TempSrc: Tympanic SpO2: 97% Weight: 76.3 kg (168 lb 4.8 oz) Wt Readings from Last 3 Encounters: 05/11/24 76.3 kg (168 lb 4.8 oz) 03/14/24 73.8 kg (162 lb 9.6 oz) 12/18/23 74.5 kg (164 lb 3.2 oz) Body mass index is 25.59 kg/m??. Results for orders placed or performed in visit on 07/22/23 POCT Influenza A/B (71295 X2 w/ Mod 59) Result Value Ref Range Rapid Influenza A Ag Negative Negative, Indeterminate Rapid Influenza B Ag Negative Negative, Indeterminate DEPRESSION SCREENING MENTAL STATUS EXAM PHQ9 SCORE: 5 Sensorium: awake and alert Appearance: no apparent distress, age appropriate and casually dressed Behavior: normal Speech: Normal. Mood: normal Affect: Normal. Thought Process: normal Thought Content: normal Cognition: fully oriented to person, place, time and circumstances Impulse control: Within Normal Limits Insight: age appropriate Judgment: age appropriate Risk for harm is suspected today NO , is the patient able to contract not to harm today: YES PHYSICAL EXAM: Physical Exam Vitals and nursing note reviewed. Constitutional: Appearance: Normal appearance. He is normal weight. Cardiovascular: Rate and Rhythm: Normal rate and regular rhythm. Heart sounds: Normal heart sounds. Pulmonary: Effort: Pulmonary effort is normal. Breath sounds: Normal breath sounds. Musculoskeletal: General: Normal range of motion. Skin: General: Skin is warm and dry. Neurological: General: No focal deficit present. Mental Status: He is alert and oriented to person, place, and time. Mental status is at baseline. Psychiatric: Mood and Affect: Mood normal. Behavior: Behavior normal. Thought Content: Thought content normal. Judgment: Judgment normal. DIAGNOSIS/ASSESSMENT/PLAN: Problem List Items Addressed This Visit Major depressive disorder, recurrent episode, moderate (HCC) - Primary Relevant Medications escitalopram (Lexapro) 20 MG tablet Anxiety Other Visit Diagnoses Medication management 1. Explained to pt that decreased libido does not mean erectile dysfunction but actually means thathe may not be in the mood for sexual activity as often 2. Informed pt that a good addition to his lexapro may be buspar which works well with lexapro but that it will not be added at this time since he is just starting to feel the effects of the lexapro and will be reassessed at his physical in 3 months 3. Pt will continue on lexapro 20 mg and has been sent to the pharmacy 4. No other questions or concerns at this time Outpatient Encounter Medications as of 05/11/2024 Medication Sig Dispense Refill ??? [DISCONTINUED] escitalopram (LEXAPRO) tablet 10 mg Take 1 tablet (10 mg total) by mouth daily. (Patient taking differently: Take 2 tablets (20 mg total) by mouth daily.) 90 tablet 0 ??? escitalopram (Lexapro) 20 MG tablet Take 1 tablet (20 mg total) by mouth daily. 90 tablet 0 No facility-administered encounter medications on file as of 05/11/2024. Consent to Treatment: I have discussed risks and benefits, rationale for the use of medication recommended, along with alternative choices available and possibility of no medication use, with patient. Any related questions were answered. Patient has voiced understanding of the above discussion/medication management and has provided informed consent to the treatment plan recommended. ? Recommended that pt work w/ psychologist to improve coping skills if not already seeing someone. ? Advised to call back directly if there are further questions,Patient/caregiver verbalized understanding of visit today: have reviewed the instructions with the patient, answering all questions to patient/caregiver satisfaction. THE FOLLOWING DISCUSSED WITH PT IF APPLICABLE TO VISIT: ? Pt's prescription history was researched on the [place] Prescription Monitoring [facility] Reporting [place] website and no aberrant prescription activity was noted. ? Random urine to be tested (to ensure pt is taking opioid/benzo/amphetamine as prescribed and to ensure no other potentially toxic substances in urine) done today: No results: not done ??? Controlled Substances Contract signed and is on file: Reviewed by provider. Yes ??? Patient verbalizes understanding of indications for prescribed medications, doseages, and schedules for taking the medications. Patient verbalizes understanding of the policy for refills. See contract in patient's chart for additional clarification. ??? Patient has been provided with copy of contract. Outpatient Encounter Medications as of 05/11/2024 Medication Sig Dispense Refill ??? [DISCONTINUED] escitalopram (LEXAPRO) tablet 10 mg Take 1 tablet (10 mg total) by mouth daily. (Patient taking differently: Take 2 tablets (20 mg total) by mouth daily.) 90 tablet 0 ??? escitalopram (Lexapro) 20 MG tablet Take 1 tablet (20 mg total) by mouth daily. 90 tablet 0 No facility-administered encounter medications on file as of 05/11/2024. No orders of the defined types were placed in this encounter. There are no Patient Instructions on file for this visit. No future appointments. Emily Archibald APRN Family Nurse Practitioner [facility] 05/11/2024 documented in this encounter Plan of Treatment Not on file documented as of this encounter Visit Diagnoses Not on filedocumented in this encounter Care Teams Patient Services Technician Relationship Specialty Start Date End Date Emily Archibald NP [address] [place] [address] PCP - General Pediatrics 10/05/20 documented as of this encounter
--- NOTE | ~2025-03-15 | XR_ITS ---
EXAMINATION: XR HAND, RIGHT CLINICAL INFORMATION: M79.641 - Pain in right hand COMPARISON: February 08, 2025 TECHNIQUE: PA, lateral, and oblique views of the right hand. FINDINGS: Sclerotic marginated fracture at the tip distal phalanx, second digit. Minimal callus formation. Displaced calcific fragment on the radial aspect of the tip distal phalanx third digit. No callus formation. Metacarpal bones are intact. The carpal bones are intact with normal alignment. Distal radius and ulna are intact. The phalanges of the first fourth and fifth digits are intact. No subcutaneous emphysema. XR/XR hand RT min 3V IMPRESSION: Minimal healing fracture, second digit. Displaced fracture, distal phalanx third digit, unchanged. Electronically signed by: Darwin Gonzalez MD 03/15/2025 08:40 AM EDT
--- OUTSIDE RECORDS SUMMARY | 2025-03-15 08:50 | XMS_ITS | Clinical Summary ---
Author Organization [facility] Address [address] [place] [address] Care Team Providers Care Sas Programmer Name Role Phone Unavailable Primary Care Provider [...] (Shingrix) (1 of 2) 01/10/2038 HPV Vaccine (No Doses Required) Completed Hep A Aged Out No longer eligi [...]
--- OUTSIDE RECORDS SUMMARY | 2025-03-15 08:51 | XMS_ITS | Clinical Summary ---
Author Organization [facility] Address [address] [place], [place] [id number] Care Team Providers Care Visual Basic .Net Developer Name Role Phone Emily Archibald CARRIE Primary [...] often do you attend chur ch or faith services? More than 4 times per year 03/07/2022 Do you belong to any clubs o r organizations such as hoahaoism groups, unions, fraternal or athletic groups, or [...] age to complete this topic Care Teams Visual Basic .Net Developer Relationship Specialty Start Date End Date Emily Archibald APRN PCP - General Pediatrics 10/05/20
--- OUTSIDE RECORDS SUMMARY | 2025-03-15 08:51 | XMS_ITS | Clinical Summary ---
Author Organization [facility] Address [address] [address] Phone Care Team Providers Care Motor Expert Name Role Phone Shaun Edwards MD Primary Care Provider [phone] Allergies No known active allergies Medications escitalopram oxalate (LEXAPRO) 20 MG tablet Take [...] Assigned at Male 05/30/2024 10:38 AM EST Legal Sex Male 7:05 PM EST Gender Identity Male 05/30/2024 10:38 AM EST Sexual Orientation Straight 05/30/2024 10 :38 AM EST Last Filed Vital Signs Vital Sign Reading Time Taken Comments Blood Pressure 127/77 05/30/2024 10:33 AM EST Pulse 56 05/30/2024 10:33 AM EST Temperature 36.7 C (98 F) 05/30/2024 10:33 AM EST Respiratory Rate 18 [...] age to complete this topic MENINGOCOCCAL VACCINES (B) Aged Out N o longer eligible based on patient's age to complete this topic PNEUMOCOCCAL VACCINES (0-49 years) Aged Out No longer eligible based on patient's age to complete this topic Medical Devices Not on file Insurance Care Teams Motor Expert Relationship Specialty Start Date End Date Shaun Edwards MD PCP - General 01/24/14 Additional Source Comments The information contained in this document represents components of the legal health record. It is not the complete legal health record.[facility]
== END 2025-03-15 08:03 | disposition home or self-care (01) ==
LOC: HO.HOSX 08:02
DX: S62.632D Displaced fracture of distal phalanx of right middle finger, subsequent encounter for fracture with routine healing (principal); S62.630D Displaced fracture of distal phalanx of right index finger, subsequent encounter for fracture with routine healing; S67.21XD Crushing injury of right hand, subsequent encounter; R20.0 Anesthesia of skin; X58.XXXD Exposure to other specified factors, subsequent encounter
CPT/HCPCS: 73130; 99212

== ENCOUNTER → 2025-03-15 08:19 | Outpatient (BNV) | payer OTHER, SELFPAY | PROVIDERS: Visit Provider Radiology Diagnostic Radiology | DX: S62.630G Displaced fracture of distal phalanx of right index finger, subsequent encounter for fracture with delayed healing (principal) | CPT/HCPCS: 73130 ==